=== PATIENT | female | born 1940 | race African-American/Black ===

== ENCOUNTER 2018-03-03 17:07 | Inpatient (IN) | payer MEDICARE, MEDICAID ==
[~2018-03-03] VITALS: Ht 175.3 cm; Wt 105.9 kg
--- NOTE | 2018-03-03 17:46 | Emergency Room Report ---
History of Present Illness General Chief Complaint: General Complaint Source: Patient Present Illness HPI 77-year-old female patient presents ER brought in by ambulance complaining of right lower extremity pain. Patient reports history of pain in both legs secondary to peripheral vascular disease, states pain in right leg worsened in the past few days. reports currently being seen by clinical reimbursement specialist for wound on lower left leg. Reports being seen by vascular doctor for possible stent placement and lower extremities. Denies other acute symptoms, denies fever, chest pain, shortness of breath. Reports pain with ambulation. Reports hx of taking blood thinner medication, patient does not know name of medication at this time. Patient reports she lives alone, not in assisted living facility. Patient is a poor historian. Allergies: Coded Allergies: No Known Allergies (Unverified , 03/03/18) Patient History Past Medical History: see triage record Reviewed Nursing Documentation: PMH: Agreed; PSxH: Agreed Nursing Documentation-PMH Hx Cardiac Problems: Yes - A-fib Hx Hypertension: Yes Review of Systems All Other Systems: negative except mentioned in HPI Physical Exam Vital Signs Date Time Temp Pulse Resp B/P (MAP) Pulse Ox O2 Delivery O2 Flow Rate FiO2 03/03/18 17:06 97.3 102 18 108/64 96 Room Air 97.3 Sp02 EP Interpretation: reviewed, normal General Appearance: well appearing, no apparent distress, alert, GCS 15, non- toxic Head: normocephalic, atraumatic Eyes: bilateral eye normal inspection, bilateral eye PERRL Neck: full range of motion Respiratory: lungs clear, normal breath sounds, no rhonchi, no respiratory distress, no accessory muscle use, no wheezing, speaking full sentences Cardiovascular #1: regular rate, rhythm, edema - bilateral lower extremities Gastrointestinal: non tender, soft, no mass, non-distended, no guarding, no rebound Neurologic: alert, oriented x3, responsive, motor strength/tone normal, sensory intact Psychiatric: mood/affect normal Skin: wd healing/no infection noted - anterior left lower extremity Medical Decision Making PA Attestation Dr. Velasquez is my supervising Physician whom patient management has been discussed with. Diagnostic Impression: Primary Impression: Generalized weakness Additional Impressions: Elevated troponin Atrial fibrillation Leg ulcer, left ER Course Pt. presents to the ED c/o right lower extremity pain Multiple differentials considered Vital signs: are WNL, pt. is afebrile Ordered X-ray, labs, EKG, PT, PTT, duplex ultrasound of bilateral lower extremities and pain medication. ER COURSE Patient complaining of right lower extremity pain, reports hx of leg pain. Patient reports taking Ibuprofen for pain, will provide patient with medication in ER for pain. Consult with Dr. Velasquez, patient seen and evaluated by Dr. Velasquez, patient now complaining of left lower extremity pain. patient has wound care dressing on right leg, Following removal of wound dressing, patient reports pain symptoms in left leg improved. Patient denies right leg pain Duplex ultrasound of bilateral lower extremities negative for DVT. EKG shows atrial fibrillation chest x-ray shows enlarged cardiomediastinal silhouette and mild bilateral nonspecific interstitial prominence CBC unremarkable, no elevation of WBCs. PT, PTT, INR elevated, patient has a history of being on blood thinners, does not know name of medication taking. Troponin elevated. Consult with Dr. Velasquez, agree that patient need to be admitted. Patient will be admitted to telemetry. Patient admitted to covering for Dr. Hoffmann. Patient denies chest pain, SOB, abdominal pain, other acute symptoms at this time. Patient resting comfortably in no acute distress at this time. Labs Test 03/03/18 17:55 White Blood Count 6.6 K/UL (4.8-10.8) Red Blood Count 5.09 M/UL (4.20-5.40) Hemoglobin 12.5 G/DL (12.0-16.0) Hematocrit 39.7 % (37.0-47.0) Mean Corpuscular Volume 78 FL (80-99) Mean Corpuscular Hemoglobin 24.5 PG (27.0-31.0) Mean Corpuscular Hemoglobin Concent 31.4 G/DL (32.0-36.0) Red Cell Distribution Width 14.5 % (11.6-14.8) Platelet Count 187 K/UL (150-450) Mean Platelet Volume 7.7 FL (6.5-10.1) Neutrophils (%) (Auto) 70.6 % (45.0-75.0) Lymphocytes (%) (Auto) 14.5 % (20.0-45.0) Monocytes (%) (Auto) 10.0 % (1.0-10.0) Eosinophils (%) (Auto) 3.2 % (0.0-3.0) Basophils (%) (Auto) 1.7 % (0.0-2.0) Prothrombin Time 25.4 SEC (9.30-11.50) Prothromb Time International Ratio 2.4 (0.9-1.1) Activated Partial Thromboplast Time 59 SEC (23-33) Sodium Level 141 MMOL/L (136-145) Potassium Level 3.8 MMOL/L (3.5-5.1) Chloride Level 101 MMOL/L (98-107) Carbon Dioxide Level 33 MMOL/L (21-32) Anion Gap 7 mmol/L (5-15) Blood Urea Nitrogen 82 mg/dL (7-18) Creatinine 2.7 MG/DL (0.55-1.30) Estimat Glomerular Filtration Rate mL/min (>60) Glucose Level 127 MG/DL (74-106) Calcium Level 9.5 MG/DL (8.5-10.1) Total Bilirubin 0.4 MG/DL (0.2-1.0) Aspartate Amino Transf (AST/SGOT) 18 U/L (15-37) Alanine Aminotransferase (ALT/SGPT) 22 U/L (12-78) Alkaline Phosphatase 94 U/L (46-116) Total Creatine Kinase 106 U/L (26-308) Creatine Kinase MB 1.6 NG/ML (0.0-3.6) Creatine Kinase MB Relative Index 1.5 Troponin I 0.159 ng/mL (0.000-0.056) Total Protein 8.7 G/DL (6.4-8.2) Albumin 3.2 G/DL (3.4-5.0) Globulin 5.5 g/dL Albumin/Globulin Ratio 0.6 (1.0-2.7) EKG Diagnostic Results Rate: normal Rhythm: other Other Impression atrial fibrillation right bundle branch block T-wave abnormality Abnormal EKG ASA given to the pt in ED: No PA Scribe Text Sam Louis PA-C Rhythm Strip Diag. Results EP Interpretation: yes Rate: 103 Rhythm: other PA Scribe Text Sam Louis PA-C Chest X-Ray Diagnostic Results Chest X-Ray Diagnostic Results : Chest X-Ray Ordered: Yes # of Views/Limited/Complete: 1 View Indication: Chest Pain EP Interpretation: Yes PA Xray: Interpretation reviewed Interpretation: no consolidation, no pneumothorax, other - moderately enlarged cardiomediastinal silhouette, mild bilateral nonspecific interstitial prominence may be related to mild interstitial edema or chronic interstitial lung disease Impression: Other PA Scribgiacomo Text Sam Louis PA-C CT/MRI/US Diagnostic Results CT/MRI/US Diagnostic Results : Imaging Test Ordered: Doppler US Impression no DVT in bilateral lower extremities via US central service technician Last Vital Signs Date Time Temp Pulse Resp B/P (MAP) Pulse Ox O2 Delivery O2 Flow Rate FiO2 03/03/18 17:06 97.3 102 18 108/64 96 Room Air 97.3 Disposition: ADMITTED INPATIENT Condition: Serious Richar Louis March 03, 2018 17:46
[2018-03-03 18:11] LABS: BASOPHILS % (AUTO) 1.7 % (0.0-2.0); EOSINOPHILS % (AUTO) 3.2 % (0.0-3.0); HEMATOCRIT 39.7 % (37.0-47.0); HEMOGLOBIN 12.5 G/DL (12.0-16.0); LYMPHOCYTES % (AUTO) 14.5 % (20.0-45.0); MEAN CORPUSCULAR VOLUME 78 FL (80-99); NEUTROPHILS % (AUTO) 70.6 % (45.0-75.0); PLATELET COUNT 187 K/UL (150-450); RED BLOOD COUNT 5.09 M/UL (4.20-5.40); RED CELL DISTRIBUTION WIDTH 14.5 % (11.6-14.8); WHITE BLOOD COUNT 6.6 K/UL (4.8-10.8)
[2018-03-03 18:15] LABS: ANION GAP 7 mmol/L (5-15); BLOOD UREA NITROGEN 82 mg/dL (7-18); CALCIUM 9.5 MG/DL (8.5-10.1); CARBON DIOXIDE 33 MMOL/L (21-32); CHLORIDE 101 MMOL/L (98-107); CREATININE 2.7 MG/DL (0.55-1.30); POTASSIUM 3.8 MMOL/L (3.5-5.1); SODIUM 141 MMOL/L (136-145)
[2018-03-03 18:18] LABS: INR 2.4 (0.9-1.1)
[2018-03-03 18:30] LABS: ALANINE AMINOTRANSFERASE 22 U/L (12-78); ALBUMIN 3.2 G/DL (3.4-5.0); ALBUMIN/GLOBULIN RATIO 0.6 (1.0-2.7); ALKALINE PHOSPHATASE 94 U/L (46-116); ASPARTATE AMINO TRANSFERASE 18 U/L (15-37); BILIRUBIN,TOTAL 0.4 MG/DL (0.2-1.0); CKMB 1.6 NG/ML (0.0-3.6); CREATINE KINASE 106 U/L (26-308)
[2018-03-03] MEDS ORDERED: UNOBMED (18:47)
[2018-03-03 19:30] VITALS: BP 118/66
--- NOTE | 2018-03-03 19:42 | Diagnostic Imaging Report ---
EXAM: XR Chest, 1 View CLINICAL HISTORY: PAIN TECHNIQUE: Frontal view of the chest. COMPARISON: No relevant prior studies available. FINDINGS: Lungs: Mild bilateral nonspecific interstitial prominence may be related to mild interstitial edema or chronic interstitial lung disease. No focal consolidation. Pleural space: Unremarkable. No pneumothorax. Heart: Moderately enlarged cardiomediastinal silhouette. Mediastinum: See above. Bones/joints: No acute osseous abnormality. IMPRESSION: 1. Moderately enlarged cardiomediastinal silhouette. 2. Mild bilateral nonspecific interstitial prominence may be related to mild interstitial edema or chronic interstitial lung disease.
[2018-03-03 20:30] VITALS: BP 115/62
[2018-03-04] MEDS ORDERED: TRUSOPT10 ML BOTH EYES (02:43)
[2018-03-04] MEDS ORDERED: XALATAN2.5 ML BOTH EYES (02:43)
[2018-03-04] MEDS ORDERED: BRIMONIDINE TART5 ML BOTH EYES (02:43)
[2018-03-04] MEDS ORDERED: LIORESAL20 MG ORAL (02:43)
[2018-03-04 04:00] VITALS: BP 119/79
[2018-03-04 08:00] VITALS: BP 113/69
[2018-03-04] MEDS ORDERED: Dabigatran 150mg cap ORAL SCH (09:00)
[2018-03-04] MEDS: Carvedilol 12.5mg tab ORAL SCH ×2 (09:03→22:06)
[2018-03-04] MEDS: Furosemide 80mg tab ORAL SCH ×2 (09:03→22:06)
[2018-03-04 12:00] VITALS: BP 106/64
[2018-03-04] MEDS: Brimonidine 0.2% Opth Sol BOTH EYES SCH ×2 (13:10→22:08)
--- NOTE | 2018-03-04 13:25 | History and Physical ---
History of Present Illness General Date patient seen: March 04, 2018 Reason for Hospitalization: generalized weakness Present Illness HPI 77-year-old female patient presents ER brought in by ambulance complaining of right lower extremity pain. Patient reports history of pain in both legs secondary to peripheral vascular disease, states pain in right leg worsened in the past few days. reports currently being seen by antenna specialist for wound on lower left leg. Reports being seen by vascular doctor for possible stent placement and lower extremities. Denies other acute symptoms, denies fever, chest pain, shortness of breath. Reports pain with ambulation. patient lives alone and states that it has been harder to taker care of herslef recently. Allergies: Allergies: Coded Allergies: No Known Allergies (Unverified , 03/03/18) Medication History Scheduled Baclofen (Baclofen), 20 MG ORAL THREE TIMES A DAY, (Reported) Brimonidine Tartrate* (Alphagan*), 1 DROP BOTH EYES TID, (Reported) Dorzolamide Hcl* (Trusopt*), 1 DROP BOTH EYES BID, (Reported) Latanoprost* (Xalatan*), 1 DROP BOTH EYES BEDTIME, (Reported) Miscellaneous Medications Unable to Obtain Medications (Unable To Obtain Meds), (Reported) Patient History Healthcare decision maker Resuscitation status Full Code Advanced Directive on File Review of Systems Constitutional: Reports: chills; Denies: no symptoms, see HPI, sweats, fever, malaise, weakness, other Eye: Denies: no symptoms, see HPI, eye pain, blurred vision, tearing, double vision, nose pain, nose congestion, acuity changes, discharge, other ENT: Denies: no symptoms, see HPI, ear pain, ear discharge, nose pain, nose congestion, throat pain, throat swelling, mouth pain, hearing loss, nasal discharge, other Respiratory: Denies: no symptoms, see HPI, cough, orthopnea, shortness of breath, stridor, wheezing, CHICAS, sputum, other Cardiovascular: Denies: no symptoms, see HPI, chest pain, edema, palpitations, syncope, PND, other Skin: Denies: no symptoms, see HPI, rash, change in color, change in hair/nails , dryness, lesions, other Psychiatric: Denies: no symptoms, see HPI, prior hx, anxiety, depressed feelings, emotional problems, SI, HI, hallucinations, other Endocrine: Denies: no symptoms, see HPI, excessive sweating, flushing, intolerance to temperature, increased thirst, increased urine, unexplained weight loss, other Hematologic/Lymphatic: Denies: no symptoms, see HPI, anemia, blood clots, easy bleeding, easy bruising, swollen glands, diathesis, other Physical Exam General Appearance: WD/WN, alert HEENT: normocephalic Neck: non-tender Respiratory/Chest: chest wall non-tender, lungs clear Cardiovascular/Chest: normal rate, regular rhythm, regularly irregular, no gallop/murmur Abdomen: non tender, soft, no mass Extremities: normal inspection, no edema, no cyanosis Last 24 Hour Vital Signs Date Time Temp Pulse Resp B/P (MAP) Pulse Ox O2 Delivery O2 Flow Rate FiO2 03/04/18 12:00 98.2 67 19 106/64 96 Room Air 98.2 03/04/18 12:00 92 03/04/18 09:03 100 113/69 03/04/18 08:00 96 03/04/18 08:00 98.0 100 20 113/69 99 Room Air 98.0 03/04/18 04:00 98.6 99 20 119/79 95 Room Air 98.6 03/04/18 04:00 93 03/03/18 20:45 97.9 92 16 115/62 97 Room Air 97.9 03/03/18 20:30 97.9 92 16 115/62 97 Room Air 97.9 03/03/18 19:30 98.0 98 16 118/66 98 Room Air 98.0 03/03/18 19:30 97.3 03/03/18 17:06 97.3 102 18 108/64 96 Room Air 97.3 Intake and Output 03/03/18 03/04/18 19:00 07:00 Intake Total 0 ml 300 ml Balance 0 ml 300 ml Intake Oral 0 ml 300 ml # Bowel Movements 1 Laboratory Tests Test 03/03/18 17:55 03/04/18 09:20 03/04/18 11:05 White Blood Count 6.6 K/UL (4.8-10.8) Red Blood Count 5.09 M/UL (4.20-5.40) Hemoglobin 12.5 G/DL (12.0-16.0) Hematocrit 39.7 % (37.0-47.0) Mean Corpuscular Volume 78 FL (80-99) L Mean Corpuscular Hemoglobin 24.5 PG (27.0-31.0) L Mean Corpuscular Hemoglobin Concent 31.4 G/DL (32.0-36.0) L Red Cell Distribution Width 14.5 % (11.6-14.8) Platelet Count 187 K/UL (150-450) Mean Platelet Volume 7.7 FL (6.5-10.1) Neutrophils (%) (Auto) 70.6 % (45.0-75.0) Lymphocytes (%) (Auto) 14.5 % (20.0-45.0) L Monocytes (%) (Auto) 10.0 % (1.0-10.0) Eosinophils (%) (Auto) 3.2 % (0.0-3.0) H Basophils (%) (Auto) 1.7 % (0.0-2.0) Prothrombin Time 25.4 SEC (9.30-11.50) H Prothromb Time International Ratio 2.4 (0.9-1.1) H Activated Partial Thromboplast Time 59 SEC (23-33) H Sodium Level 141 MMOL/L (136-145) Potassium Level 3.8 MMOL/L (3.5-5.1) Chloride Level 101 MMOL/L (98-107) Carbon Dioxide Level 33 MMOL/L (21-32) H Anion Gap 7 mmol/L (5-15) Blood Urea Nitrogen 82 mg/dL (7-18) H Creatinine 2.7 MG/DL (0.55-1.30) H Estimat Glomerular Filtration Rate mL/min (>60) Glucose Level 127 MG/DL (74-106) H Calcium Level 9.5 MG/DL (8.5-10.1) Total Bilirubin 0.4 MG/DL (0.2-1.0) Aspartate Amino Transf (AST/SGOT) 18 U/L (15-37) Alanine Aminotransferase (ALT/SGPT) 22 U/L (12-78) Alkaline Phosphatase 94 U/L (46-116) Total Creatine Kinase 106 U/L (26-308) Creatine Kinase MB 1.6 NG/ML (0.0-3.6) Creatine Kinase MB Relative Index 1.5 Troponin I 0.159 ng/mL (0.000-0.056) 0.207 ng/mL (0.000-0.056) 0.212 ng/mL (0.000-0.056) Total Protein 8.7 G/DL (6.4-8.2) H Albumin 3.2 G/DL (3.4-5.0) L Globulin 5.5 g/dL Albumin/Globulin Ratio 0.6 (1.0-2.7) L Magnesium Level 2.4 MG/DL (1.8-2.4) Height (Feet): 5 Height (Inches): 9.00 Weight (Pounds): 250 Medications Current Medications Medications (Trade) Dose Ordered Sig/Karoline Route PRN Reason Start Time Stop Time Status Last Admin Dose Admin Acetaminophen (Tylenol) 650 mg Q4H PRN ORAL Mild Pain/Temp > 100.5 03/04/18 00:00 04/03/18 00:00 Brimonidine Tartrate (Alphagan) 1 drop Q8HR BOTH EYES 03/04/18 14:00 04/03/18 13:59 03/04/18 13:10 Carvedilol (Coreg) 12.5 mg EVERY 12 HOURS ORAL 03/04/18 09:00 04/03/18 08:59 03/04/18 09:03 Dabigatran (Pradaxa) 150 mg EVERY 12 HOURS ORAL 03/04/18 09:00 04/03/18 08:59 03/04/18 09:03 Dorzolamide HCl (Trusopt) 1 drop TWICE A DAY BOTH EYES 03/04/18 18:00 04/03/18 17:59 Furosemide (Lasix) 80 mg EVERY 12 HOURS ORAL 03/04/18 09:00 04/03/18 08:59 03/04/18 09:03 Latanoprost (Xalatan) 1 drop BEDTIME BOTH EYES 03/04/18 21:00 04/03/18 20:59 Metolazone (Zaroxolyn) 5 mg DAILY ORAL 03/04/18 09:00 04/03/18 08:59 03/04/18 09:03 Assessment/Plan Assessment/Plan #elevated troponin- no report of angina #generalized weakness #leg pain #history of PAD #LEON on CKD - admit inpatient - serial trop - 2d echo - aspirin 81mg daily - cardiology consult - nephrology consult - lower extremity vascular arterial and venous doppler - pain control - DVT ppx Jarvis Brumfield M.D. March 04, 2018 13:25
--- NOTE | 2018-03-04 14:13 | Consultation ---
Consult Note Assessment/Plan Cardiology for Dr. Burton Full note dictated [id number] Mayela Cedeno MD March 04, 2018 14:13
--- NOTE | 2018-03-04 15:04 | Consultation ---
Consult Note Assessment/Plan Renal consult dictated # [id number] Wilian Montesinos MD March 04, 2018 15:04
[2018-03-04 15:56] LABS: APPEARANCE,URINE SLIGHTLY CLOUDY; BILIRUBIN, URINE NEGATIVE (NEGATIVE); COLOR,URINE PALE YELLOW; GLUCOSE, URINE (UA) NEGATIVE (NEGATIVE); KETONES,URINE NEGATIVE (NEGATIVE); LEUKOCYTE ESTERASE ,URINE 1+ (NEGATIVE); NITRITE,URINE NEGATIVE (NEGATIVE); PH,URINE 6.5 (4.5-8.0); PROTEIN,URINE NEGATIVE (NEGATIVE); UROBILINOGEN,URINE NORMAL MG/DL (0.0-1.0)
[2018-03-04 16:00] VITALS: BP 114/66
--- NOTE | 2018-03-04 17:15 | Consultation ---
DATE OF CONSULTATION: 03/04/2018 CARDIOLOGY CONSULTATION CONSULTING PHYSICIAN: Mayela Barrera M.D. REFERRING PHYSICIAN: Dr. Bridget Hoffmann. This is being done as coverage for Dr. Burton. REASON FOR CONSULTATION: Atrial fibrillation and elevated troponin. HISTORY OF PRESENT ILLNESS: The patient is a 77-year-old woman with history of hypertension, peripheral vascular disease, and atrial fibrillation, who presents with complaints of bilateral leg pain over several days prior to admission. Symptoms worsened over the past day. She states she could not move her legs without pain and presented to the emergency room. She is being treated for a wound of her left leg. In the emergency room, pulse was 102, irregular, blood pressure 108/64. Her initial troponin was elevated at 0.159 and Cardiology evaluation was requested. She was also noted to be in atrial fibrillation with rapid ventricular rate. She denies any chest pain, dyspnea, or palpitations currently. She denies any previous history of coronary artery disease, angina, or myocardial infarction. MEDICATIONS: Pradaxa 75 mg twice daily, Xalatan eyedrops 1 drop to both eyes daily, Trusopt eyedrops 1 drop to both eyes twice daily, Alphagan eyedrops 1 drop to both eyes every 8 hours, Lasix 80 mg every 12 hours, Coreg 12.5 mg every 12 hours, Zaroxolyn 5 mg daily, Tylenol p.r.n. ALLERGIES: No known drug allergies. PAST MEDICAL HISTORY: As noted above. History of atrial fibrillation, hypertension, peripheral vascular disease. SOCIAL HISTORY: The patient lives alone. She has remote history of tobacco use, but has not smoked in over 20 years. No history of alcohol or drug use. REVIEW OF SYSTEMS: Negative except as per HPI. PHYSICAL EXAMINATION: VITAL SIGNS: Blood pressure is 106/64, pulse 92, irregularly irregular, respirations 20, afebrile. GENERAL: Alert, well-developed woman in mild distress due to leg pain. HEENT: Normocephalic and atraumatic. Pupils are equal, round, and reactive to light. Extraocular movements intact. Sclerae anicteric. Oral mucosa are moist. NECK: Supple. There is no thyromegaly, adenopathy, or jugular venous distention. Carotid pulses are 2+ bilaterally without bruits. LUNGS: There are bilateral scattered rhonchi and transmitted upper airway sounds. HEART: Irregularly irregular, S1 and S2 with no murmur or S3. ABDOMEN: Soft, nontender. No palpable mass. EXTREMITIES: There is 2+ pitting edema of both legs, feet to calf and dry dressing over the left calf. Distal lower extremity pulses are not palpable, but extremities warm and perfused. NEUROLOGIC: No focal motor deficits. LABORATORY AND DIAGNOSTIC DATA: Hemoglobin 12.5, hematocrit 39, white blood count 6600, platelets 187,000. Troponin was 0.159 on admission and repeat 0.207 and 0.212. Potassium 3.8, BUN 82, creatinine 2.7, glucose 137. IMAGING STUDIES: Chest x-ray shows mildly increased interstitial markings, cardiomegaly, no effusions. EKG shows atrial fibrillation with ventricular rate of 103 beats per minute, right bundle-branch block, nonspecific T-wave changes, occasional premature ventricular complex or aberrantly conducted complex, no ST-segment changes. ASSESSMENT AND RECOMMENDATIONS: The patient is a 77-year-old woman with hypertension, atrial fibrillation possibly permanent, and peripheral vascular disease, who presents with leg pain likely due to ischemia. She is being treated for a nonhealing ulcer on the left leg. She has undergone venous duplex showing no evidence for DVT. She will be evaluated by Vascular Surgery for further treatment. With regard to her atrial fibrillation, this may be chronic. I will review records from her previous hospitalization at [facility] to determine any previous evaluation she has undergone. For now, we will continue Pradaxa for stroke prevention given her elevated CHADS-VASc score and carvedilol for ventricular rate control. Serial troponin levels will be obtained. Her EKG and clinical history did not suggest an acute coronary syndrome, however. An echo will be obtained to evaluate left ventricular function and valves. Further recommendations will be made based on her clinical course and results of the above testing. We will start aspirin and statin for possible coronary artery disease. Mayela Cedeno M.D. DR: Giovanni JOB#: [id number] CC:
[2018-03-04] MEDS: Dorzolamide 2% 10ml Btl BOTH EYES SCH (17:59)
--- NOTE | 2018-03-04 18:30 | Consultation ---
DATE OF CONSULTATION: 03/04/2018 NEPHROLOGY CONSULTATION CONSULTING PHYSICIAN: Wilian Montesinos M.D. REFERRING PHYSICIAN: Jarvis Brumfield M.D. REASON FOR CONSULTATION: Renal failure. HISTORY OF PRESENT ILLNESS: This is a 77-year-old, female, who was brought in by ambulance for right lower extremity pain. The patient has a history of peripheral vascular disease. I was asked to see her because of elevation in BUN and creatinine to 82 and 2.7 as of today. According to the patient, she was told about 3 or 4 months ago that she has kidney problems. She does not know her baseline. She has had long history of hypertension and she said it was mostly not controlled. PAST MEDICAL HISTORY: History of CKD and hypertension as mentioned. No history of diabetes. History of peripheral vascular disease. MEDICATIONS: Reviewed in the EMR. ALLERGIES: No known drug allergies. SOCIAL HISTORY: No history of smoking or alcohol abuse. The patient lives at home with a caregiver. REVIEW OF SYSTEMS: As above. PHYSICAL EXAMINATION: GENERAL: The patient is an elderly female, in no acute distress. VITAL SIGNS: Blood pressure 106/64, pulse is 92, temperature 98.2 degrees, and respiratory rate is 19. HEENT: [place]han conjunctivae. Anicteric sclerae. NECK: Supple. LUNGS: Clear to auscultation. HEART: S1 and S2 without murmurs or rubs. ABDOMEN: Soft and nontender. EXTREMITIES: Bilateral pedal edema. LABORATORY FINDINGS: The chemistry panel shows serum sodium 141, potassium 3.8, chloride 101, CO2 33, BUN is 82, creatinine 2.7, blood sugar is 127, and calcium is 9.5. CBC shows WBC of 6.6, hematocrit 39.5, hemoglobin is 12.5, and platelets 187,000. Calcium is 9.5. ASSESSMENT: This is a 77-year-old, female with history of peripheral vascular disease, who was admitted with right lower extremity pain. She has renal failure with unknown baseline. She likely has some chronic kidney disease from hypertensive nephropathy, but she could have also acute renal failure for other reasons such as prerenal azotemia or obstruction. PLAN: Urine studies will be done. I will get a renal ultrasound to look at the echogenicity of the kidneys, also to make sure the patient does not have any obstruction. A serum PTH level will be done to make sure the patient does not have secondary hyperparathyroidism. Case was discussed with Dr. Conley. Thank you very much for this consultation. Wilian Montesinos M.D. DR: SEBASTIAN JOB#: [id number] CC:
[2018-03-04 20:00] VITALS: BP 117/50
[2018-03-04] MEDS: Latanoprost 0.005% Opth 2.5ml Soln BOTH EYES SCH (22:07)
[2018-03-05] VITALS: BP 92/59
[2018-03-05 04:00] VITALS: BP 105/62
[2018-03-05] MEDS: Brimonidine 0.2% Opth Sol BOTH EYES SCH ×3 (06:15→21:27)
[2018-03-05 08:00] VITALS: BP 119/59
[2018-03-05 08:10] LABS: HEMATOCRIT 36.9 % (37.0-47.0); HEMOGLOBIN 11.5 G/DL (12.0-16.0); MEAN CORPUSCULAR VOLUME 78 FL (80-99); PLATELET COUNT 191 K/UL (150-450); RED BLOOD COUNT 4.73 M/UL (4.20-5.40); RED CELL DISTRIBUTION WIDTH 14.8 % (11.6-14.8); WHITE BLOOD COUNT 10.7 K/UL (4.8-10.8)
[2018-03-05] MEDS: Aspirin EC 81mg tab ORAL SCH (08:22)
[2018-03-05] MEDS: Carvedilol 12.5mg tab ORAL SCH ×3 (08:23→21:00)
[2018-03-05] MEDS: Furosemide 80mg tab ORAL SCH ×2 (08:23→20:58)
[2018-03-05] MEDS: Dorzolamide 2% 10ml Btl BOTH EYES SCH ×2 (08:23→17:12)
[2018-03-05 08:40] LABS: ANION GAP 9 mmol/L (5-15); BLOOD UREA NITROGEN 74 mg/dL (7-18); CALCIUM 9.9 MG/DL (8.5-10.1); CARBON DIOXIDE 31 MMOL/L (21-32); CHLORIDE 103 MMOL/L (98-107); CHOLESTEROL 142 MG/DL (< 200); CREATININE 2.5 MG/DL (0.55-1.30); HDL CHOLESTEROL 73 MG/DL (40-60); POTASSIUM 3.4 MMOL/L (3.5-5.1); SODIUM 143 MMOL/L (136-145); TRIGLYCERIDES 49 MG/DL (30-150)
[2018-03-05 11:43] VITALS: BP 116/65
--- NOTE | 2018-03-05 13:52 | Cardiology Progress Note ---
Assessment/Plan Problem List: (1) CKD (chronic kidney disease) (2) Peripheral vascular disease (3) Atrial fibrillation (4) Elevated troponin (5) Leg ulcer, left Status: stable, unchanged Status Narrative Mrs. Vargas is stable from a cardiac standpoint. ECHO shows no wall motion abnl and preserved LV systolic function. However, there is severe pulm hypertension. She has mild troponin elevation, without significant ekg changes ( SR, RBBB and nonspecific T changes) I suspect AF is permanent. Ventricular rates are controlled She has PVD, w/ nonhealing L LE ulcer. She has CKD, which may be due to to previous uncontrolled hypertension Assessment/Plan Will order stress nuclear study for tues, in view of troponin elevation and pt' s cardiac risk factors ( htn, previous tobacco use). Continue asa , b anthony, statin continue pradaxa for CVA prevention in AF Evaluation of LE wound and PVD per primary team Subjective ROS Limited/Unobtainable: No Subjective Cardiology for Dr. Burton Pt c/o L leg pain. No chest pain or dyspnea Objective Last 24 Hour Vital Signs Date Time Temp Pulse Resp B/P (MAP) Pulse Ox O2 Delivery O2 Flow Rate FiO2 03/05/18 11:43 98.4 100 21 116/65 96 Room Air 98.4 03/05/18 08:23 100 119/59 03/05/18 08:00 97.7 100 19 119/59 94 Room Air 97.7 03/05/18 08:00 97 03/05/18 05:55 99.2 03/05/18 04:41 102.0 03/05/18 04:00 98 03/05/18 04:00 102.0 103 22 105/62 96 Room Air 102.0 03/05/18 00:00 101.0 107 20 92/59 94 Room Air 101.0 03/05/18 00:00 103 03/04/18 22:06 111 117/50 03/04/18 20:00 97.9 111 18 117/50 95 97.9 03/04/18 20:00 96 03/04/18 16:00 101 03/04/18 16:00 97.9 100 20 114/66 95 Room Air 97.9 General Appearance: WD/WN, no apparent distress EENT: PERRL/EOMI Neck: supple, no JVD Rhythm: Afib Cardiovascular: normal rate, no gallop/murmur, irregularly irregular Respiratory/Chest: lungs clear Extremities: other - 2+ pitting edema distal LEs bilat. L LE dressing Pulses: normal: DP (R); decreased: DP (L) Intake and Output 03/04/18 03/05/18 19:00 07:00 Intake Total 570 ml 360 ml Output Total 1001 ml 2700 ml Balance -431 ml -2340 ml Intake Oral 450 ml 360 ml Other 120 ml Output Urine Total 1000 ml 2700 ml Stool Total 1 ml Laboratory Tests Test 03/04/18 15:30 03/05/18 06:50 Urine Color Pale yellow Urine Appearance Slightly cloudy Urine pH 6.5 (4.5-8.0) Urine Specific [place] 1.005 (1.005-1.035) Urine Protein Negative (NEGATIVE) Urine Glucose (UA) Negative (NEGATIVE) Urine Ketones Negative (NEGATIVE) Urine Occult Blood Negative (NEGATIVE) Urine Nitrite Negative (NEGATIVE) Urine Bilirubin Negative (NEGATIVE) Urine Urobilinogen Normal MG/DL (0.0-1.0) Urine Leukocyte Esterase 1+ (NEGATIVE) H Urine RBC 0-2 /HPF (0 - 2) Urine WBC 5-10 /HPF (0 - 2) H Urine Squamous Epithelial Cells Moderate /LPF (NONE/OCC) H Urine Bacteria Few /HPF (NONE) Urine Mucus Few /LPF (NONE/OCC) H Urine Eosinophils None seen Urine Random Sodium 98 mmol/L (20-110) 17-Hydroxycorticosteroids Pending White Blood Count 10.7 K/UL (4.8-10.8) Red Blood Count 4.73 M/UL (4.20-5.40) Hemoglobin 11.5 G/DL (12.0-16.0) L Hematocrit 36.9 % (37.0-47.0) L Mean Corpuscular Volume 78 FL (80-99) L Mean Corpuscular Hemoglobin 24.3 PG (27.0-31.0) L Mean Corpuscular Hemoglobin Concent 31.2 G/DL (32.0-36.0) L Red Cell Distribution Width 14.8 % (11.6-14.8) Platelet Count 191 K/UL (150-450) Mean Platelet Volume 7.6 FL (6.5-10.1) Neutrophils (%) (Auto) % (45.0-75.0) Lymphocytes (%) (Auto) % (20.0-45.0) Monocytes (%) (Auto) % (1.0-10.0) Eosinophils (%) (Auto) % (0.0-3.0) Basophils (%) (Auto) % (0.0-2.0) Differential Total Cells Counted 100 Neutrophils % (Manual) 90 % (45-75) H Lymphocytes % (Manual) 4 % (20-45) L Monocytes % (Manual) 6 % (1-10) Eosinophils % (Manual) 0 % (0-3) Basophils % (Manual) 0 % (0-2) Band Neutrophils 0 % (0-8) Platelet Estimate Adequate Platelet Morphology Normal Hypochromasia 1+ Anisocytosis 1+ Sodium Level 143 MMOL/L (136-145) Potassium Level 3.4 MMOL/L (3.5-5.1) L Chloride Level 103 MMOL/L (98-107) Carbon Dioxide Level 31 MMOL/L (21-32) Anion Gap 9 mmol/L (5-15) Blood Urea Nitrogen 74 mg/dL (7-18) H Creatinine 2.5 MG/DL (0.55-1.30) H Estimat Glomerular Filtration Rate mL/min (>60) Glucose Level 105 MG/DL (74-106) Hemoglobin A1c 7.2 % (4.3-6.0) H Calcium Level 9.9 MG/DL (8.5-10.1) Phosphorus Level 4.0 MG/DL (2.5-4.9) Triglycerides Level 49 MG/DL (30-150) Cholesterol Level 142 MG/DL (< 200) LDL Cholesterol 68 mg/dL (<100) HDL Cholesterol 73 MG/DL (40-60) H Cholesterol/HDL Ratio 1.9 (3.3-4.4) L Microbiology Date/Time Source Procedure Growth Status 03/04/18 06:00 Wound Gram Stain - Final Resulted 03/04/18 06:00 Wound Culture - Preliminary Strep Species, Beta Hemolytic Gram Negative Alex Resulted Mayela Cedeno MD March 05, 2018 13:52
--- NOTE | 2018-03-05 14:30 | Nephrology Progress Note ---
Assessment/Plan Problem List: (1) CKD (chronic kidney disease) Assessment: likely with some ARF, slighltly better (2) Peripheral vascular disease (3) Leg ulcer, left (4) Atrial fibrillation Plan continue with diuretics replete K follow BMP await PTH await renal US Subjective Subjective feels ok Objective Objective Last 24 Hour Vital Signs Date Time Temp Pulse Resp B/P (MAP) Pulse Ox O2 Delivery O2 Flow Rate FiO2 03/05/18 12:00 102 03/05/18 11:43 98.4 100 21 116/65 96 Room Air 98.4 03/05/18 08:23 100 119/59 03/05/18 08:00 97.7 100 19 119/59 94 Room Air 97.7 03/05/18 08:00 97 03/05/18 05:55 99.2 03/05/18 04:41 102.0 03/05/18 04:00 98 03/05/18 04:00 102.0 103 22 105/62 96 Room Air 102.0 03/05/18 00:00 101.0 107 20 92/59 94 Room Air 101.0 03/05/18 00:00 103 03/04/18 22:06 111 117/50 03/04/18 20:00 97.9 111 18 117/50 95 97.9 03/04/18 20:00 96 03/04/18 16:00 101 03/04/18 16:00 97.9 100 20 114/66 95 Room Air 97.9 Intake and Output 03/04/18 03/05/18 19:00 07:00 Intake Total 570 ml 360 ml Output Total 1001 ml 2700 ml Balance -431 ml -2340 ml Intake Oral 450 ml 360 ml Other 120 ml Output Urine Total 1000 ml 2700 ml Stool Total 1 ml Laboratory Tests 03/04/18 15:30: Urine Color Pale yellow, Urine Appearance Slightly cloudy, Urine pH 6.5, Urine Specific [place] 1.005, Urine Protein Negative, Urine Glucose (UA) Negative, Urine Ketones Negative, Urine Occult Blood Negative, Urine Nitrite Negative, Urine Bilirubin Negative, Urine Urobilinogen Normal, Urine Leukocyte Esterase 1+ H, Urine RBC 0-2, Urine WBC 5-10H, Urine Squamous Epithelial Cells ModerateH, Urine Bacteria Few, Urine Mucus FewH, Urine Eosinophils None seen, Urine Random Sodium 98, 17-Hydroxycorticosteroids [Pending] 03/05/18 06:50: White Blood Count 10.7, Red Blood Count 4.73, Hemoglobin 11.5L, Hematocrit 36.9L , Mean Corpuscular Volume 78L, Mean Corpuscular Hemoglobin 24.3L, Mean Corpuscular Hemoglobin Concent 31.2L, Red Cell Distribution Width 14.8, Platelet Count 191, Mean Platelet Volume 7.6, Neutrophils (%) (Auto) , Lymphocytes (%) (Auto) , Monocytes (%) (Auto) , Eosinophils (%) (Auto) , Basophils (%) (Auto) , Differential Total Cells Counted 100, Neutrophils % ( Manual) 90H, Lymphocytes % (Manual) 4L, Monocytes % (Manual) 6, Eosinophils % ( Manual) 0, Basophils % (Manual) 0, Band Neutrophils 0, Platelet Estimate Adequate, Platelet Morphology Normal, Hypochromasia 1+, Anisocytosis 1+, Sodium Level 143, Potassium Level 3.4L, Chloride Level 103, Carbon Dioxide Level 31, Anion Gap 9, Blood Urea Nitrogen 74H, Creatinine 2.5H, Estimat Glomerular Filtration Rate , Glucose Level 105, Hemoglobin A1c 7.2H, Calcium Level 9.9, Phosphorus Level 4.0, Triglycerides Level 49, Cholesterol Level 142, LDL Cholesterol 68, HDL Cholesterol 73H, Cholesterol/HDL Ratio 1.9L Height (Feet): 5 Height (Inches): 9.00 Weight (Pounds): 250 Cardiovascular: normal rate Respiratory/Chest: lungs clear Extremities: moderate edema Wilian Montesinos MD March 05, 2018 14:30
--- NOTE | 2018-03-05 15:17 | Diagnostic Imaging Report ---
EXAM: US Retroperitoneal Limited, Renal CLINICAL HISTORY: Increased renal function tests TECHNIQUE: Real-time ultrasound of the retroperitoneum (limited) with image documentation. COMPARISON: No relevant prior studies available. FINDINGS: Right kidney: Right kidney measures 10.0 x 6.7 x 4.4 cm. No stones. No hydronephrosis. Normal parenchymal echogenicity. Left kidney: 5.6 cm simple-appearing partially exophytic cyst in the mid left kidney. Left kidney measures 11.3 x 7.8 x 6.5 cm. No stones. No hydronephrosis. Normal parenchymal echogenicity. Bladder: Prevoid urinary bladder volume of 78.8 cc. IMPRESSION: 1. No acute findings. 2. A 5.6 cm simple-appearing partially exophytic cyst in the mid left kidney.
[2018-03-05 16:00] VITALS: BP 118/71
--- NOTE | 2018-03-05 17:10 | Internal Med Progress Note ---
Subjective Date of Service: March 05, 2018 Physician Name Jarvis Brumfield Attending Physician Bridget Hofmfann MD Current Medications Medications (Trade) Dose Ordered Sig/Karoline Route PRN Reason Start Time Stop Time Status Last Admin Dose Admin Acetaminophen (Tylenol) 650 mg Q4H PRN ORAL Mild Pain/Temp > 100.5 03/04/18 00:00 04/03/18 00:00 03/05/18 04:41 Aspirin (Ecotrin) 81 mg DAILY ORAL 03/05/18 09:00 04/04/18 08:59 03/05/18 08:22 Atorvastatin Calcium (Lipitor) 10 mg BEDTIME ORAL 03/05/18 21:00 04/04/18 20:59 Brimonidine Tartrate (Alphagan) 1 drop Q8HR BOTH EYES 03/04/18 14:00 04/03/18 13:59 03/05/18 13:18 Carvedilol (Coreg) 12.5 mg EVERY 12 HOURS ORAL 03/04/18 09:00 04/03/18 08:59 03/05/18 08:23 Dabigatran (Pradaxa) 75 mg EVERY 12 HOURS ORAL 03/05/18 09:00 04/04/18 08:59 03/05/18 08:22 Dorzolamide HCl (Trusopt) 1 drop TWICE A DAY BOTH EYES 03/04/18 18:00 04/03/18 17:59 03/05/18 08:23 Furosemide (Lasix) 80 mg EVERY 12 HOURS ORAL 03/04/18 09:00 04/03/18 08:59 03/05/18 08:23 Latanoprost (Xalatan) 1 drop BEDTIME BOTH EYES 03/04/18 21:00 04/03/18 20:59 03/04/18 22:07 Metolazone (Zaroxolyn) 5 mg DAILY ORAL 03/04/18 09:00 04/03/18 08:59 03/05/18 08:23 Regadenoson (Lexiscan) 0.4 mg ONCE PRN IV stress test 03/06/18 09:00 03/07/18 23:59 Allergies: Coded Allergies: No Known Allergies (Unverified , 03/03/18) All Systems: reviewed and negative except above Subjective no acute events overnight no chest pain or shortness of breath evaluated by cardiology and renal Objective Last Vital Signs Date Time Temp Pulse Resp B/P (MAP) Pulse Ox O2 Delivery O2 Flow Rate FiO2 03/05/18 16:00 97.6 92 20 118/71 97 Room Air 97.6 General Appearance: WD/WN, no apparent distress, alert EENT: PERRL/EOMI Neck: non-tender Cardiovascular: normal peripheral pulses Respiratory/Chest: chest wall non-tender, lungs clear Abdomen: normal bowel sounds, non tender, soft Extremities: normal range of motion Edema: trace edema Neurologic: alert, oriented x 3, responsive Laboratory Tests Test 03/05/18 06:50 White Blood Count 10.7 K/UL (4.8-10.8) Red Blood Count 4.73 M/UL (4.20-5.40) Hemoglobin 11.5 G/DL (12.0-16.0) L Hematocrit 36.9 % (37.0-47.0) L Mean Corpuscular Volume 78 FL (80-99) L Mean Corpuscular Hemoglobin 24.3 PG (27.0-31.0) L Mean Corpuscular Hemoglobin Concent 31.2 G/DL (32.0-36.0) L Red Cell Distribution Width 14.8 % (11.6-14.8) Platelet Count 191 K/UL (150-450) Mean Platelet Volume 7.6 FL (6.5-10.1) Neutrophils (%) (Auto) % (45.0-75.0) Lymphocytes (%) (Auto) % (20.0-45.0) Monocytes (%) (Auto) % (1.0-10.0) Eosinophils (%) (Auto) % (0.0-3.0) Basophils (%) (Auto) % (0.0-2.0) Differential Total Cells Counted 100 Neutrophils % (Manual) 90 % (45-75) H Lymphocytes % (Manual) 4 % (20-45) L Monocytes % (Manual) 6 % (1-10) Eosinophils % (Manual) 0 % (0-3) Basophils % (Manual) 0 % (0-2) Band Neutrophils 0 % (0-8) Platelet Estimate Adequate Platelet Morphology Normal Hypochromasia 1+ Anisocytosis 1+ Sodium Level 143 MMOL/L (136-145) Potassium Level 3.4 MMOL/L (3.5-5.1) L Chloride Level 103 MMOL/L (98-107) Carbon Dioxide Level 31 MMOL/L (21-32) Anion Gap 9 mmol/L (5-15) Blood Urea Nitrogen 74 mg/dL (7-18) H Creatinine 2.5 MG/DL (0.55-1.30) H Estimat Glomerular Filtration Rate mL/min (>60) Glucose Level 105 MG/DL (74-106) Hemoglobin A1c 7.2 % (4.3-6.0) H Calcium Level 9.9 MG/DL (8.5-10.1) Phosphorus Level 4.0 MG/DL (2.5-4.9) Triglycerides Level 49 MG/DL (30-150) Cholesterol Level 142 MG/DL (< 200) LDL Cholesterol 68 mg/dL (<100) HDL Cholesterol 73 MG/DL (40-60) H Cholesterol/HDL Ratio 1.9 (3.3-4.4) L Microbiology Date/Time Source Procedure Growth Status 03/04/18 06:00 Wound Gram Stain - Final Resulted 03/04/18 06:00 Wound Culture - Preliminary Strep Species, Beta Hemolytic Gram Negative Alex Resulted Intake and Output 03/04/18 03/05/18 19:00 07:00 Intake Total 570 ml 360 ml Output Total 1001 ml 2700 ml Balance -431 ml -2340 ml Intake Oral 450 ml 360 ml Other 120 ml Output Urine Total 1000 ml 2700 ml Stool Total 1 ml Assessment/Plan Assessment/Plan #elevated troponin- no report of angina #generalized weakness #leg pain #afib #history of PAD #LEON on CKD - serial trop elevated - plan for stress test on tuesday - 2d echo - aspirin 81mg daily - statin - continue with coreg - cardiology consult, appreciate recs - nephrology consult, appreciate recs - lower extremity vascular arterial and venous doppler - pain control - DVT ppx Jarvis Brumfield M.D. March 05, 2018 17:10
[2018-03-05 20:00] VITALS: BP 108/69
[2018-03-05] MEDS: Latanoprost 0.005% Opth 2.5ml Soln BOTH EYES SCH (20:57)
[2018-03-06] VITALS: BP 107/51
[2018-03-06 04:00] VITALS: BP 109/62
[2018-03-06] MEDS: Brimonidine 0.2% Opth Sol BOTH EYES SCH ×3 (05:18→21:26)
[2018-03-06 07:27] LABS: BASOPHILS % (AUTO) 1.2 % (0.0-2.0); EOSINOPHILS % (AUTO) 0.5 % (0.0-3.0); HEMATOCRIT 33.5 % (37.0-47.0); HEMOGLOBIN 10.7 G/DL (12.0-16.0); MEAN CORPUSCULAR VOLUME 77 FL (80-99); MONOCYTES % (AUTO) 6.5 % (1.0-10.0); NEUTROPHILS % (AUTO) 81.7 % (45.0-75.0); PLATELET COUNT 142 K/UL (150-450); RED BLOOD COUNT 4.35 M/UL (4.20-5.40); RED CELL DISTRIBUTION WIDTH 14.7 % (11.6-14.8); WHITE BLOOD COUNT 9.4 K/UL (4.8-10.8)
[2018-03-06 07:57] LABS: ANION GAP 8 mmol/L (5-15); BLOOD UREA NITROGEN 70 mg/dL (7-18); CALCIUM 9.5 MG/DL (8.5-10.1); CARBON DIOXIDE 32 MMOL/L (21-32); CHLORIDE 100 MMOL/L (98-107); CREATININE 2.4 MG/DL (0.55-1.30); POTASSIUM 3.4 MMOL/L (3.5-5.1); SODIUM 140 MMOL/L (136-145)
[2018-03-06 08:00] VITALS: BP 109/76
[2018-03-06] MEDS ORDERED: Lexiscan 0.4mg/5ml syringe IV PRN (09:00)
[2018-03-06] MEDS: Furosemide 80mg tab ORAL SCH ×2 (10:17→20:39)
[2018-03-06] MEDS: Aspirin EC 81mg tab ORAL SCH (10:17)
[2018-03-06] MEDS: Dorzolamide 2% 10ml Btl BOTH EYES SCH ×2 (10:18→18:21)
[2018-03-06 12:00] VITALS: BP 110/62
--- NOTE | 2018-03-06 12:34 | Cardiology Progress Note ---
Assessment/Plan Problem List: (1) CKD (chronic kidney disease) (2) Peripheral vascular disease (3) Atrial fibrillation (4) Elevated troponin (5) Leg ulcer, left Status: stable, unchanged Status Narrative Mrs. Vargas is stable from a cardiac standpoint. ECHO shows no wall motion abnl and preserved LV systolic function. However, there is severe pulm hypertension. She has mild troponin elevation, with continued elevated levels. She has no chest pain or definite ischemic EKG changes ( SR, RBBB and nonspecific T changes ) I suspect AF is permanent. Ventricular rates are controlled She has PVD, w/ nonhealing L LE ulcer. She has CKD, which may be due to to previous uncontrolled hypertension Assessment/Plan stress nuclear study (pharmacologic stress) will be done tomorrow. d/w pt. Continue asa , b anthony, statin continue pradaxa for CVA prevention in AF Evaluation of LE wound and PVD per primary team - ? arterial duplex. Subjective Subjective Cardiology for Dr. Burton Leg pain has improved. No chest pain Objective Last 24 Hour Vital Signs Date Time Temp Pulse Resp B/P (MAP) Pulse Ox O2 Delivery O2 Flow Rate FiO2 03/06/18 08:00 98.4 101 18 109/76 96 Room Air 98.4 03/06/18 08:00 101 03/06/18 04:00 97.5 99 18 109/62 97 Room Air 97.5 03/06/18 03:42 102 03/06/18 00:00 97.9 97 18 107/51 93 Room Air 97.9 03/06/18 00:00 96 03/05/18 21:00 103 117/51 03/05/18 20:00 98.2 104 19 108/69 95 Room Air 98.2 03/05/18 19:52 88 03/05/18 16:00 97.6 92 20 118/71 97 Room Air 97.6 03/05/18 16:00 104 General Appearance: WD/WN, alert EENT: PERRL/EOMI Neck: supple, no JVD Rhythm: Afib Cardiovascular: normal rate, no gallop/murmur, irregularly irregular Respiratory/Chest: lungs clear Abdomen: non tender, soft Extremities: moderate edema - L leg dressing intact Intake and Output 03/05/18 03/06/18 19:00 07:00 Intake Total 620 ml Output Total 950 ml Balance -330 ml Intake Oral 620 ml Output Urine Total 950 ml # Voids 2 1 Laboratory Tests Test 03/06/18 06:35 White Blood Count 9.4 K/UL (4.8-10.8) Red Blood Count 4.35 M/UL (4.20-5.40) Hemoglobin 10.7 G/DL (12.0-16.0) L Hematocrit 33.5 % (37.0-47.0) L Mean Corpuscular Volume 77 FL (80-99) L Mean Corpuscular Hemoglobin 24.5 PG (27.0-31.0) L Mean Corpuscular Hemoglobin Concent 31.8 G/DL (32.0-36.0) L Red Cell Distribution Width 14.7 % (11.6-14.8) Platelet Count 142 K/UL (150-450) L Mean Platelet Volume 7.8 FL (6.5-10.1) Neutrophils (%) (Auto) 81.7 % (45.0-75.0) H Lymphocytes (%) (Auto) 10.0 % (20.0-45.0) L Monocytes (%) (Auto) 6.5 % (1.0-10.0) Eosinophils (%) (Auto) 0.5 % (0.0-3.0) Basophils (%) (Auto) 1.2 % (0.0-2.0) Sodium Level 140 MMOL/L (136-145) Potassium Level 3.4 MMOL/L (3.5-5.1) L Chloride Level 100 MMOL/L (98-107) Carbon Dioxide Level 32 MMOL/L (21-32) Anion Gap 8 mmol/L (5-15) Blood Urea Nitrogen 70 mg/dL (7-18) H Creatinine 2.4 MG/DL (0.55-1.30) H Estimat Glomerular Filtration Rate mL/min (>60) Glucose Level 99 MG/DL (74-106) Calcium Level 9.5 MG/DL (8.5-10.1) Microbiology Date/Time Source Procedure Growth Status 03/04/18 06:00 Wound Gram Stain - Final Resulted 03/04/18 06:00 Wound Culture - Preliminary Strep Agalactiae Group B Providencia Rettgeri Resulted Mayela Cedeno MD March 06, 2018 12:34
--- NOTE | 2018-03-06 13:46 | Nephrology Progress Note ---
Assessment/Plan Problem List: (1) CKD (chronic kidney disease) Assessment: no change/ baseline ? (2) Peripheral vascular disease (3) Leg ulcer, left (4) Atrial fibrillation Plan continue with diuretics replete K follow BMP await PTH await renal US Subjective Subjective feels ok Objective Objective Last 24 Hour Vital Signs Date Time Temp Pulse Resp B/P (MAP) Pulse Ox O2 Delivery O2 Flow Rate FiO2 03/06/18 08:00 98.4 101 18 109/76 96 Room Air 98.4 03/06/18 08:00 101 03/06/18 04:00 97.5 99 18 109/62 97 Room Air 97.5 03/06/18 03:42 102 03/06/18 00:00 97.9 97 18 107/51 93 Room Air 97.9 03/06/18 00:00 96 03/05/18 21:00 103 117/51 03/05/18 20:00 98.2 104 19 108/69 95 Room Air 98.2 03/05/18 19:52 88 03/05/18 16:00 97.6 92 20 118/71 97 Room Air 97.6 03/05/18 16:00 104 Intake and Output 03/05/18 03/06/18 19:00 07:00 Intake Total 620 ml Output Total 950 ml Balance -330 ml Intake Oral 620 ml Output Urine Total 950 ml # Voids 2 1 Laboratory Tests 03/06/18 06:35: White Blood Count 9.4, Red Blood Count 4.35, Hemoglobin 10.7L, Hematocrit 33.5L , Mean Corpuscular Volume 77L, Mean Corpuscular Hemoglobin 24.5L, Mean Corpuscular Hemoglobin Concent 31.8L, Red Cell Distribution Width 14.7, Platelet Count 142L, Mean Platelet Volume 7.8, Neutrophils (%) (Auto) 81.7H, Lymphocytes (%) (Auto) 10.0L, Monocytes (%) (Auto) 6.5, Eosinophils (%) (Auto) 0.5, Basophils (%) (Auto) 1.2, Sodium Level 140, Potassium Level 3.4L, Chloride Level 100, Carbon Dioxide Level 32, Anion Gap 8, Blood Urea Nitrogen 70H, Creatinine 2.4H, Estimat Glomerular Filtration Rate , Glucose Level 99, Calcium Level 9.5 Height (Feet): 5 Height (Inches): 9.00 Weight (Pounds): 250 Cardiovascular: normal rate Respiratory/Chest: lungs clear Extremities: moderate edema Wilian Montesinos MD March 06, 2018 13:46
[2018-03-06 16:00] VITALS: BP 119/55
[2018-03-06] MEDS: Latanoprost 0.005% Opth 2.5ml Soln BOTH EYES SCH (20:34)
[2018-03-06] MEDS: Carvedilol 12.5mg tab ORAL SCH (20:39)
[2018-03-06 21:00] VITALS: BP 105/81
--- NOTE | 2018-03-06 22:32 | General Progress Note ---
Assessment/Plan Problem List: (1) Atrial fibrillation ICD Codes: I48.91 - Unspecified atrial fibrillation SNOMED: 49180977 (2) Generalized weakness ICD Codes: R53.1 - Weakness SNOMED: 05200630 (3) Leg ulcer, left ICD Codes: L97.929 - Non-pressure chronic ulcer of unspecified part of left lower leg with unspecified severity SNOMED: 58099815 (4) Elevated troponin ICD Codes: R74.8 - Abnormal levels of other serum enzymes SNOMED: 244466978, 658202049, 293667071 (5) Peripheral vascular disease ICD Codes: I73.9 - Peripheral vascular disease, unspecified SNOMED: 858452671 (6) CKD (chronic kidney disease) ICD Codes: N18.9 - Chronic kidney disease, unspecified SNOMED: 938539765 Status: stable, progressing Assessment/Plan #elevated troponin- no report of angina #generalized weakness #leg pain #afib #history of PAD #LEON on CKD - serial trop elevated - plan for stress test on tuesday - 2d echo normal EF - aspirin 81mg daily - statin - continue with coreg - cardiology consult, appreciate recs - nephrology consult, appreciate recs - lower extremity venous duplex negative for DVT - continue wound care to LLE for venous ulcer - outpatient f/u with vascular surgeon for angioplasty with stent for PVD - pain control - DVT ppx DVT Prophylaxis: HSQ Code Status: Full Hospital Classification Declaration: Based on this initial evaluation, and depending on the patient's clinical course, I anticipate that this patient will require hospitalization for 2-3 days for elevated troponins and close respiratory/hemodynamic monitoring. Disposition: Once the patient is stable to leave the hospital, I anticipate the patient will likely be discharged to the following environment: home with vs SNF I spent 36 minutes on this patient's case, and 22 minutes were dedicated to counseling and/or care coordination. Discussed with patient/family, nursing staff, SW/CM, cardiology and nephrology regarding clinical status, treatment course, and disposition planning. Time of note may not reflect time of encounter. Subjective Date patient seen: March 06, 2018 Time patient seen: 12:00 Allergies: Coded Allergies: No Known Allergies (Unverified , 03/03/18) Subjective - doing well, no chest pain or SOB. AF, HDS - scheduled for nuclear stress Tuesday Objective Last 24 Hour Vital Signs Date Time Temp Pulse Resp B/P (MAP) Pulse Ox O2 Delivery O2 Flow Rate FiO2 03/06/18 20:39 105 105/69 03/06/18 20:00 93 03/06/18 16:00 93 03/06/18 16:00 98.2 90 18 119/55 98 Room Air 98.2 03/06/18 12:00 98.4 102 18 110/62 93 Room Air 98.4 03/06/18 12:00 110 03/06/18 08:00 98.4 101 18 109/76 96 Room Air 98.4 03/06/18 08:00 101 03/06/18 04:00 97.5 99 18 109/62 97 Room Air 97.5 03/06/18 03:42 102 03/06/18 00:00 97.9 97 18 107/51 93 Room Air 97.9 03/06/18 00:00 96 Intake and Output 03/05/18 03/06/18 19:00 07:00 Intake Total 620 ml Output Total 950 ml Balance -330 ml Intake Oral 620 ml Output Urine Total 950 ml # Voids 2 1 Laboratory Tests 03/06/18 06:35: White Blood Count 9.4, Red Blood Count 4.35, Hemoglobin 10.7L, Hematocrit 33.5L , Mean Corpuscular Volume 77L, Mean Corpuscular Hemoglobin 24.5L, Mean Corpuscular Hemoglobin Concent 31.8L, Red Cell Distribution Width 14.7, Platelet Count 142L, Mean Platelet Volume 7.8, Neutrophils (%) (Auto) 81.7H, Lymphocytes (%) (Auto) 10.0L, Monocytes (%) (Auto) 6.5, Eosinophils (%) (Auto) 0.5, Basophils (%) (Auto) 1.2, Sodium Level 140, Potassium Level 3.4L, Chloride Level 100, Carbon Dioxide Level 32, Anion Gap 8, Blood Urea Nitrogen 70H, Creatinine 2.4H, Estimat Glomerular Filtration Rate , Glucose Level 99, Calcium Level 9.5 Height (Feet): 5 Height (Inches): 9.00 Weight (Pounds): 250 General Appearance: no apparent distress, alert EENT: PERRL/EOMI, normal ENT inspection Neck: non-tender, normal alignment, supple Cardiovascular: normal peripheral pulses, normal rate, regular rhythm Respiratory/Chest: chest wall non-tender, lungs clear, normal breath sounds Abdomen: normal bowel sounds, non tender, soft Edema: moderate edema Neurologic: rn traveling II-XII grossly normal, no motor/sensory deficits, alert, oriented x 3 Skin: other - venous ulcer to left lower extremity Lizett De Leon NP March 06, 2018 22:32
[2018-03-07] VITALS: BP 92/61
[2018-03-07 04:00] VITALS: BP 106/69
[2018-03-07] MEDS: Brimonidine 0.2% Opth Sol BOTH EYES SCH ×3 (05:35→23:12)
[2018-03-07 08:00] VITALS: BP 100/60
[2018-03-07] MEDS: Furosemide 80mg tab ORAL SCH ×2 (08:52→23:11)
[2018-03-07] MEDS: Dorzolamide 2% 10ml Btl BOTH EYES SCH ×2 (08:52→17:55)
[2018-03-07] MEDS: Carvedilol 12.5mg tab ORAL SCH ×2 (08:52→23:11)
[2018-03-07] MEDS: Aspirin EC 81mg tab ORAL SCH (08:52)
[2018-03-07 09:16] LABS: BASOPHILS % (AUTO) 1.3 % (0.0-2.0); EOSINOPHILS % (AUTO) 0.9 % (0.0-3.0); HEMATOCRIT 35.5 % (37.0-47.0); HEMOGLOBIN 11.2 G/DL (12.0-16.0); LYMPHOCYTES % (AUTO) 9.2 % (20.0-45.0); MEAN CORPUSCULAR VOLUME 77 FL (80-99); MONOCYTES % (AUTO) 7.4 % (1.0-10.0); NEUTROPHILS % (AUTO) 81.2 % (45.0-75.0); PLATELET COUNT 166 K/UL (150-450); RED BLOOD COUNT 4.59 M/UL (4.20-5.40); RED CELL DISTRIBUTION WIDTH 14.3 % (11.6-14.8)
[2018-03-07 09:26] LABS: ANION GAP 7 mmol/L (5-15); BLOOD UREA NITROGEN 73 mg/dL (7-18); CALCIUM 9.7 MG/DL (8.5-10.1); CARBON DIOXIDE 34 MMOL/L (21-32); CHLORIDE 98 MMOL/L (98-107); CREATININE 2.5 MG/DL (0.55-1.30); POTASSIUM 3.4 MMOL/L (3.5-5.1); SODIUM 139 MMOL/L (136-145)
--- NOTE | 2018-03-07 10:13 | Cardiology Report ---
APPROVED REPORT EXAM: Two-dimensional and M-mode echocardiogram with Doppler and color Doppler. INDICATION ATRIAL FIBRILLATION M-Mode DIMENSIONS IVSd1.6 (0.7-1.1cm)Left Atrium (MM)4.2 (1.6-4.0cm) LVDd5.2 (3.5-5.6cm)Aortic Root3.4 (2.0-3.7cm) PWd1.5 (0.7-1.1cm)Aortic Cusp Exc.1.9 (1.5-2.0cm) IVSs1.9 cm LVDs3.5 (2.5-4.0cm) PWs1.9 cm Normal left ventricular chamber size, systolic function and wall motion . Left ventricular ejection fraction estimated to be 60%. Mild left ventricular hypertrophy by 2-D. No evidence of pericardial effusion. Mild bi-atrial enlargements . Right ventricular chamber sizes is within normal limits. Mildly Focal aortic valve sclerosis with adequate cusp excursion. Mildly Thickened mitral valve leaflets with normal excursion. Mildldy Mitral annulus and aortic root calcification. Normal pulmonic valve structure. Normal tricuspid valve structure. IVC at normal size with physiologic collapse. A color flow and spectral Doppler study was performed and revealed: No aortic regurgitation. Mild mitral regurgitation. Left ventricular diastolic function can not determined due to atrial fibrillation . Moderate tricuspid regurgitation. Tricuspid systolic velocities suggests peak right ventricular systolic pressure of61,consistent with severe pulmonary hypertension. Mild Pulmonic regurgitation present.
[2018-03-07 12:00] VITALS: BP 106/63
[2018-03-07] MEDS ORDERED: Levofloxacin 500mg tab ORAL SCH (12:00)
--- NOTE | 2018-03-07 14:49 | Nephrology Progress Note ---
Assessment/Plan Problem List: (1) CKD (chronic kidney disease) Assessment: no change/ baseline ? (2) Peripheral vascular disease (3) Leg ulcer, left (4) Atrial fibrillation (5) Hypokalemia Plan continue with diuretics Daily KCL follow BMP await PTH await renal US Subjective Subjective feels ok Objective Objective Last 24 Hour Vital Signs Date Time Temp Pulse Resp B/P (MAP) Pulse Ox O2 Delivery O2 Flow Rate FiO2 03/07/18 12:00 97.9 91 19 106/63 97 97.9 03/07/18 08:52 91 100/60 03/07/18 08:00 103 03/07/18 08:00 97.7 91 20 100/60 99 97.7 03/07/18 08:00 97.7 91 20 100/60 99 Room Air 97.7 03/07/18 04:00 99.5 99 19 106/69 96 Room Air 99.5 03/07/18 04:00 99 03/07/18 00:00 93 03/07/18 00:00 98.5 93 20 92/61 95 Room Air 98.5 03/06/18 21:00 98.2 98 19 105/81 94 Room Air 98.2 03/06/18 20:39 105 105/69 03/06/18 20:00 93 03/06/18 16:00 93 03/06/18 16:00 98.2 90 18 119/55 98 Room Air 98.2 Intake and Output 03/06/18 03/07/18 19:00 07:00 Intake Total 480 ml 240 ml Output Total 900 ml Balance 480 ml -660 ml Intake Oral 480 ml 240 ml Output Urine Total 900 ml # Voids 14 4 # Bowel Movements 1 Laboratory Tests 03/07/18 08:45: White Blood Count 12.0H, Red Blood Count 4.59, Hemoglobin 11.2L, Hematocrit 35.5L, Mean Corpuscular Volume 77L, Mean Corpuscular Hemoglobin 24.5L, Mean Corpuscular Hemoglobin Concent 31.6L, Red Cell Distribution Width 14.3, Platelet Count 166, Mean Platelet Volume 7.6, Neutrophils (%) (Auto) 81.2H, Lymphocytes (%) (Auto) 9.2L, Monocytes (%) (Auto) 7.4, Eosinophils (%) (Auto) 0.9, Basophils (%) (Auto) 1.3, Sodium Level 139, Potassium Level 3.4L, Chloride Level 98, Carbon Dioxide Level 34H, Anion Gap 7, Blood Urea Nitrogen 73H, Creatinine 2.5H, Estimat Glomerular Filtration Rate , Glucose Level 106, Calcium Level 9.7 Height (Feet): 5 Height (Inches): 9.00 Weight (Pounds): 250 Cardiovascular: normal rate Respiratory/Chest: lungs clear Wilian Montesinos MD March 07, 2018 14:49
[2018-03-07 16:00] VITALS: BP 100/56
--- NOTE | 2018-03-07 16:23 | Diagnostic Imaging Report ---
Indication: chest pain. Hypertension Technique: The study was conducted under the supervision of a child development specialist. lexiscan (regadenoson) infusion over 10 seconds followed by intravenous administration of 32.4 mCi of technetium 99m Myoview was performed. Three plane SPECT imaging of the heart was then performed. A resting study was performed as part of the one-day protocol with 10.1 mCi of technetium 99m myoview injected intravenously at that time. Three plane SPECT imaging of the heart was obtained. Comparison: None Clinical data: 1. Clinical response: Non ischemic 2. Electrocardiographic response: Nondiagnostic Findings: The myocardial perfusion scan demonstrates no definite fixed or reversible perfusion defects. Left ventricular ejection fraction estimated at 69%. IMPRESSION: Negative myocardial perfusion scan. LVEF 69%
--- NOTE | 2018-03-07 19:37 | General Progress Note ---
Assessment/Plan Problem List: (1) Atrial fibrillation ICD Codes: I48.91 - Unspecified atrial fibrillation SNOMED: 67148916 (2) Generalized weakness ICD Codes: R53.1 - Weakness SNOMED: 61238598 (3) Leg ulcer, left ICD Codes: L97.929 - Non-pressure chronic ulcer of unspecified part of left lower leg with unspecified severity SNOMED: 66175503 (4) Elevated troponin ICD Codes: R74.8 - Abnormal levels of other serum enzymes SNOMED: 793734290, 679665702, 817811526 (5) Peripheral vascular disease ICD Codes: I73.9 - Peripheral vascular disease, unspecified SNOMED: 871915709 (6) CKD (chronic kidney disease) ICD Codes: N18.9 - Chronic kidney disease, unspecified SNOMED: 896450225 (7) Leg wound, left ICD Codes: S81.802A - Unspecified open wound, left lower leg, initial encounter SNOMED: 373750390, 22069086, 939183391 Status: stable, progressing Assessment/Plan #elevated troponin- no report of angina #generalized weakness #leg pain #afib #history of PAD #LEON on CKD #leg wound - serial trop elevated - plan for stress test today - 2d echo normal EF 60% - f/u renal ultrasound - aspirin 81mg daily - statin - continue with coreg - cardiology consult, appreciate recs - nephrology consult, appreciate recs - lower extremity venous duplex negative for DVT - continue wound care to LLE for venous ulcer. start levaquin for positive wound culture results and leukocytosis - outpatient f/u with vascular surgeon for angioplasty with stent for PVD - pain control - DVT ppx DVT Prophylaxis: HSQ Code Status: Full Hospital Classification Declaration: Based on this initial evaluation, and depending on the patient's clinical course, I anticipate that this patient will require hospitalization for 2-3 days for elevated troponins and close respiratory/hemodynamic monitoring. Disposition: Once the patient is stable to leave the hospital, I anticipate the patient will likely be discharged to the following environment: home with vs SNF I spent 36 minutes on this patient's case, and 22 minutes were dedicated to counseling and/or care coordination. Discussed with patient/family, nursing staff, SW/CM, cardiology and nephrology regarding clinical status, treatment course, and disposition planning. Time of note may not reflect time of encounter. Subjective Date patient seen: March 07, 2018 Time patient seen: 12:00 Allergies: Coded Allergies: No Known Allergies (Unverified , 03/03/18) Subjective - doing well, no chest pain or SOB. AF, HDS - scheduled for nuclear stress today - WBC uptrended to 12 today. no f/c. wound culture noted Objective Last 24 Hour Vital Signs Date Time Temp Pulse Resp B/P (MAP) Pulse Ox O2 Delivery O2 Flow Rate FiO2 03/07/18 16:00 99 03/07/18 16:00 97.7 85 18 100/56 94 97.7 03/07/18 12:00 101 03/07/18 12:00 97.9 91 19 106/63 97 97.9 03/07/18 08:52 91 100/60 03/07/18 08:00 103 03/07/18 08:00 97.7 91 20 100/60 99 97.7 03/07/18 08:00 97.7 91 20 100/60 99 Room Air 97.7 03/07/18 04:00 99.5 99 19 106/69 96 Room Air 99.5 03/07/18 04:00 99 03/07/18 00:00 93 03/07/18 00:00 98.5 93 20 92/61 95 Room Air 98.5 03/06/18 21:00 98.2 98 19 105/81 94 Room Air 98.2 03/06/18 20:39 105 105/69 03/06/18 20:00 93 Intake and Output 03/06/18 03/07/18 19:00 07:00 Intake Total 480 ml 240 ml Output Total 900 ml Balance 480 ml -660 ml Intake Oral 480 ml 240 ml Output Urine Total 900 ml # Voids 14 4 # Bowel Movements 1 Laboratory Tests 03/07/18 08:45: White Blood Count 12.0H, Red Blood Count 4.59, Hemoglobin 11.2L, Hematocrit 35.5L, Mean Corpuscular Volume 77L, Mean Corpuscular Hemoglobin 24.5L, Mean Corpuscular Hemoglobin Concent 31.6L, Red Cell Distribution Width 14.3, Platelet Count 166, Mean Platelet Volume 7.6, Neutrophils (%) (Auto) 81.2H, Lymphocytes (%) (Auto) 9.2L, Monocytes (%) (Auto) 7.4, Eosinophils (%) (Auto) 0.9, Basophils (%) (Auto) 1.3, Sodium Level 139, Potassium Level 3.4L, Chloride Level 98, Carbon Dioxide Level 34H, Anion Gap 7, Blood Urea Nitrogen 73H, Creatinine 2.5H, Estimat Glomerular Filtration Rate , Glucose Level 106, Calcium Level 9.7 Height (Feet): 5 Height (Inches): 9.00 Weight (Pounds): 250 General Appearance: no apparent distress, alert EENT: PERRL/EOMI, normal ENT inspection Neck: non-tender, normal alignment, supple Cardiovascular: normal peripheral pulses, normal rate, regular rhythm Respiratory/Chest: chest wall non-tender, lungs clear, normal breath sounds Abdomen: normal bowel sounds, non tender, soft Extremities: normal range of motion, non-tender, other - venous ulcer to left leg 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
[2018-03-07 20:00] VITALS: BP 103/65
[2018-03-07] MEDS: Latanoprost 0.005% Opth 2.5ml Soln BOTH EYES SCH (23:12)
[2018-03-08] VITALS: BP 108/71
[2018-03-08 04:00] VITALS: BP 103/65
[2018-03-08] MEDS: Brimonidine 0.2% Opth Sol BOTH EYES SCH ×3 (05:49→21:24)
[2018-03-08 08:00] VITALS: BP_SYST 103; BP_SYST 127; BP_DIAS 65; BP_DIAS 75
[2018-03-08 08:29] LABS: ANION GAP 7 mmol/L (5-15); BLOOD UREA NITROGEN 74 mg/dL (7-18); CALCIUM 9.8 MG/DL (8.5-10.1); CARBON DIOXIDE 34 MMOL/L (21-32); CHLORIDE 98 MMOL/L (98-107); CREATININE 2.5 MG/DL (0.55-1.30); POTASSIUM 3.3 MMOL/L (3.5-5.1); SODIUM 139 MMOL/L (136-145)
[2018-03-08] MEDS: Carvedilol 12.5mg tab ORAL SCH ×2 (08:36→21:00)
[2018-03-08] MEDS: Furosemide 80mg tab ORAL SCH ×2 (08:36→20:41)
[2018-03-08] MEDS: Aspirin EC 81mg tab ORAL SCH (08:36)
[2018-03-08] MEDS: Dorzolamide 2% 10ml Btl BOTH EYES SCH ×2 (08:38→18:57)
--- NOTE | 2018-03-08 09:35 | Diagnostic Imaging Report ---
APPROVED REPORT CPT Code: 56044 Present Symptoms Comments: BILATERAL LEGS PAIN AND SWELLING. BILATERAL: Imaging reveals a patent deep venous system bilaterally. There is no evidence of thrombus within the femoral, popliteal or tibial segments. The greater saphenous veins are also within normal limits. Doppler indicates normal spontaneous flow within these segments.
[2018-03-08 12:00] VITALS: BP 105/61
[2018-03-08 13:35] LABS: BASOPHILS % (AUTO) 0.6 % (0.0-2.0); EOSINOPHILS % (AUTO) 1.2 % (0.0-3.0); HEMATOCRIT 37.5 % (37.0-47.0); HEMOGLOBIN 11.8 G/DL (12.0-16.0); LYMPHOCYTES % (AUTO) 9.3 % (20.0-45.0); MEAN CORPUSCULAR VOLUME 78 FL (80-99); MONOCYTES % (AUTO) 8.3 % (1.0-10.0); NEUTROPHILS % (AUTO) 80.5 % (45.0-75.0); PLATELET COUNT 192 K/UL (150-450); RED BLOOD COUNT 4.83 M/UL (4.20-5.40); RED CELL DISTRIBUTION WIDTH 14.6 % (11.6-14.8); WHITE BLOOD COUNT 8.9 K/UL (4.8-10.8)
[2018-03-08 13:58] LABS: ANION GAP 9 mmol/L (5-15); BLOOD UREA NITROGEN 74 mg/dL (7-18); CALCIUM 9.7 MG/DL (8.5-10.1); CARBON DIOXIDE 32 MMOL/L (21-32); CHLORIDE 96 MMOL/L (98-107); CREATININE 2.6 MG/DL (0.55-1.30); POTASSIUM 3.5 MMOL/L (3.5-5.1); SODIUM 137 MMOL/L (136-145)
--- NOTE | 2018-03-08 13:59 | General Progress Note ---
Assessment/Plan Problem List: (1) Atrial fibrillation ICD Codes: I48.91 - Unspecified atrial fibrillation SNOMED: 34841289 (2) Generalized weakness ICD Codes: R53.1 - Weakness SNOMED: 22136261 (3) Leg ulcer, left ICD Codes: L97.929 - Non-pressure chronic ulcer of unspecified part of left lower leg with unspecified severity SNOMED: 94901602 (4) Elevated troponin ICD Codes: R74.8 - Abnormal levels of other serum enzymes SNOMED: 442876262, 657398950, 003113244 (5) Peripheral vascular disease ICD Codes: I73.9 - Peripheral vascular disease, unspecified SNOMED: 284776299 (6) CKD (chronic kidney disease) ICD Codes: N18.9 - Chronic kidney disease, unspecified SNOMED: 663193733 (7) Leg wound, left ICD Codes: S81.802A - Unspecified open wound, left lower leg, initial encounter SNOMED: 634557429, 14644517, 201636805 Status: stable, progressing Assessment/Plan #elevated troponin- no report of angina #generalized weakness #leg pain #afib #history of PAD #LEON on CKD #leg wound - serial trop elevated - stress test negative myocardial perfusion scan. LVEF 69% - 2d echo normal EF 60% - f/u renal ultrasound - aspirin 81mg daily - statin - continue with coreg - cardiology consult, appreciate recs - nephrology consult, appreciate recs - lower extremity venous duplex negative for DVT - continue wound care to LLE for venous ulcer. start levaquin for positive wound culture results and leukocytosis. check UA - outpatient f/u with vascular surgeon for angioplasty with stent for PVD - pain control - DVT ppx Called Anjum Ochoa [phone] to discuss discharge planning. Unable to get a hold of him, left VM. DVT Prophylaxis: HSQ Code Status: Full Hospital Classification Declaration: Based on this initial evaluation, and depending on the patient's clinical course, I anticipate that this patient will require hospitalization for 2-3 days for elevated troponins and close respiratory/hemodynamic monitoring. Disposition: Once the patient is stable to leave the hospital, I anticipate the patient will likely be discharged to the following environment: home with vs SNF I spent 36 minutes on this patient's case, and 22 minutes were dedicated to counseling and/or care coordination. Discussed with patient/family, nursing staff, SW/CM, cardiology and nephrology regarding clinical status, treatment course, and disposition planning. Time of note may not reflect time of encounter. Subjective Date patient seen: March 08, 2018 Time patient seen: 11:00 Allergies: Coded Allergies: No Known Allergies (Unverified , 03/03/18) Subjective - AM labs pending - nuclear stress test negative myocardial perfusion scan. LVEF 69% - denies cp, sob - discussed discharge to SNF and per patient, it will be up to son Objective Last 24 Hour Vital Signs Date Time Temp Pulse Resp B/P (MAP) Pulse Ox O2 Delivery O2 Flow Rate FiO2 03/08/18 08:36 98 127/75 03/08/18 08:00 96.6 98 20 127/75 94 Room Air 96.6 03/08/18 08:00 91 03/08/18 04:00 96.6 97 18 103/65 98 96.6 03/08/18 04:00 95 03/08/18 00:00 96.1 105 19 108/71 98 96.1 03/07/18 23:11 92 103/65 03/07/18 20:00 96.6 97 18 103/65 98 96.6 03/07/18 20:00 92 03/07/18 16:00 99 03/07/18 16:00 97.7 85 18 100/56 94 97.7 Intake and Output 03/07/18 03/08/18 19:00 07:00 Intake Total 900 ml Output Total 4 ml Balance 896 ml Intake Oral 900 ml Output Urine Total 4 ml # Voids 2 # Bowel Movements 1 Laboratory Tests 03/08/18 05:25: Sodium Level 139, Potassium Level 3.3L, Chloride Level 98, Carbon Dioxide Level 34H, Anion Gap 7, Blood Urea Nitrogen 74H, Creatinine 2.5H, Estimat Glomerular Filtration Rate , Glucose Level 103, Calcium Level 9.8, Magnesium Level 2.3 03/08/18 13:00: Sodium Level [Pending], Potassium Level [Pending], Chloride Level [Pending], Carbon Dioxide Level [Pending], Blood Urea Nitrogen [Pending], Creatinine [ Pending], Estimat Glomerular Filtration Rate [Pending], Glucose Level [Pending] , Calcium Level [Pending], White Blood Count 8.9, Red Blood Count 4.83, Hemoglobin 11.8L, Hematocrit 37.5, Mean Corpuscular Volume 78L, Mean Corpuscular Hemoglobin 24.4L, Mean Corpuscular Hemoglobin Concent 31.5L, Red Cell Distribution Width 14.6, Platelet Count 192, Mean Platelet Volume 8.6, Neutrophils (%) (Auto) 80.5H, Lymphocytes (%) (Auto) 9.3L, Monocytes (%) (Auto) 8.3, Eosinophils (%) (Auto) 1.2, Basophils (%) (Auto) 0.6 Height (Feet): 5 Height (Inches): 9.00 Weight (Pounds): 233 General Appearance: no apparent distress, alert EENT: PERRL/EOMI, normal ENT inspection Neck: non-tender, normal alignment, supple Cardiovascular: normal peripheral pulses, normal rate, regular rhythm Respiratory/Chest: chest wall non-tender, lungs clear, normal breath sounds Abdomen: normal bowel sounds, non tender, soft Extremities: normal range of motion, non-tender, other - left venous ulcer 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
[2018-03-08 16:00] VITALS: BP 102/59
[2018-03-08 17:42] LABS: APPEARANCE,URINE CLEAR; BILIRUBIN, URINE NEGATIVE (NEGATIVE); COLOR,URINE YELLOW; GLUCOSE, URINE (UA) NEGATIVE (NEGATIVE); KETONES,URINE NEGATIVE (NEGATIVE); LEUKOCYTE ESTERASE ,URINE 1+ (NEGATIVE); NITRITE,URINE NEGATIVE (NEGATIVE); PH,URINE 7 (4.5-8.0); PROTEIN,URINE NEGATIVE (NEGATIVE); UROBILINOGEN,URINE NORMAL MG/DL (0.0-1.0)
--- NOTE | 2018-03-08 18:06 | Cardiology Progress Note ---
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 Subjective Cardiovascular: Denies: chest pain, lightheadedness Respiratory: Denies: shortness of breath Gastrointestinal/Abdominal: Denies: abdominal pain Genitourinary: Denies: burning Objective Last 24 Hour Vital Signs Date Time Temp Pulse Resp B/P (MAP) Pulse Ox O2 Delivery O2 Flow Rate FiO2 03/08/18 16:00 87 03/08/18 12:00 91 03/08/18 08:36 98 127/75 03/08/18 08:00 96.6 98 20 127/75 94 Room Air 96.6 03/08/18 08:00 91 03/08/18 04:00 96.6 97 18 103/65 98 96.6 03/08/18 04:00 95 03/08/18 00:00 96.1 105 19 108/71 98 96.1 03/07/18 23:11 92 103/65 03/07/18 20:00 96.6 97 18 103/65 98 96.6 03/07/18 20:00 92 General Appearance: mild distress Neck: supple Cardiovascular: normal rate, regular rhythm Respiratory/Chest: lungs clear, normal breath sounds Abdomen: normal bowel sounds, non tender, soft Extremities: moderate edema Intake and Output 03/07/18 03/08/18 19:00 07:00 Intake Total 900 ml Output Total 4 ml Balance 896 ml Intake Oral 900 ml Output Urine Total 4 ml # Voids 2 # Bowel Movements 1 Laboratory Tests Test 03/08/18 05:25 03/08/18 12:00 03/08/18 13:00 Sodium Level 139 MMOL/L (136-145) 137 MMOL/L (136-145) Potassium Level 3.3 MMOL/L (3.5-5.1) L 3.5 MMOL/L (3.5-5.1) Chloride Level 98 MMOL/L (98-107) 96 MMOL/L (98-107) L Carbon Dioxide Level 34 MMOL/L (21-32) H 32 MMOL/L (21-32) Anion Gap 7 mmol/L (5-15) 9 mmol/L (5-15) Blood Urea Nitrogen 74 mg/dL (7-18) H 74 mg/dL (7-18) H Creatinine 2.5 MG/DL (0.55-1.30) H 2.6 MG/DL (0.55-1.30) H Estimat Glomerular Filtration Rate mL/min (>60) mL/min (>60) Glucose Level 103 MG/DL (74-106) 153 MG/DL (74-106) H Calcium Level 9.8 MG/DL (8.5-10.1) 9.7 MG/DL (8.5-10.1) Magnesium Level 2.3 MG/DL (1.8-2.4) Urine Color Yellow Urine Appearance Clear Urine pH 7 (4.5-8.0) Urine Specific [place] 1.005 (1.005-1.035) Urine Protein Negative (NEGATIVE) Urine Glucose (UA) Negative (NEGATIVE) Urine Ketones Negative (NEGATIVE) Urine Occult Blood 1+ (NEGATIVE) H Urine Nitrite Negative (NEGATIVE) Urine Bilirubin Negative (NEGATIVE) Urine Urobilinogen Normal MG/DL (0.0-1.0) Urine Leukocyte Esterase 1+ (NEGATIVE) H Urine RBC 0-2 /HPF (0 - 2) Urine WBC 2-4 /HPF (0 - 2) Urine Squamous Epithelial Cells Few /LPF (NONE/OCC) Urine Amorphous Sediment Few /LPF (NONE) H Urine Bacteria Few /HPF (NONE) White Blood Count 8.9 K/UL (4.8-10.8) Red Blood Count 4.83 M/UL (4.20-5.40) Hemoglobin 11.8 G/DL (12.0-16.0) L Hematocrit 37.5 % (37.0-47.0) Mean Corpuscular Volume 78 FL (80-99) L Mean Corpuscular Hemoglobin 24.4 PG (27.0-31.0) L Mean Corpuscular Hemoglobin Concent 31.5 G/DL (32.0-36.0) L Red Cell Distribution Width 14.6 % (11.6-14.8) Platelet Count 192 K/UL (150-450) Mean Platelet Volume 8.6 FL (6.5-10.1) Neutrophils (%) (Auto) 80.5 % (45.0-75.0) H Lymphocytes (%) (Auto) 9.3 % (20.0-45.0) L Monocytes (%) (Auto) 8.3 % (1.0-10.0) Eosinophils (%) (Auto) 1.2 % (0.0-3.0) Basophils (%) (Auto) 0.6 % (0.0-2.0) Robin Burton MD March 08, 2018 18:06
[2018-03-08 20:30] VITALS: BP 97/60
[2018-03-08] MEDS: Latanoprost 0.005% Opth 2.5ml Soln BOTH EYES SCH (20:41)
[2018-03-08] MEDS ORDERED: Brimonidine 0.2% Opth Sol BOTH EYES SCH (22:00)
--- NOTE | 2018-03-08 23:20 | Consultation ---
History of Present Illness General Date patient seen: March 08, 2018 Chief Complaint: General Complaint Present Illness HPI 77-year-old female patient presents ER brought in by ambulance complaining of right lower extremity pain. the pt was somewhat confused today. she didnt know the date and was irritable the pt stated that she was at the hospital bc of stress test and she passed it therefore she is not crazy. the pt leaves alone and is forgetful Allergies: Coded Allergies: No Known Allergies (Unverified , 03/03/18) Medication History Scheduled Baclofen (Baclofen), 20 MG ORAL THREE TIMES A DAY, (Reported) Brimonidine Tartrate* (Alphagan*), 1 DROP BOTH EYES TID, (Reported) Dorzolamide Hcl* (Trusopt*), 1 DROP BOTH EYES BID, (Reported) Latanoprost* (Xalatan*), 1 DROP BOTH EYES BEDTIME, (Reported) Miscellaneous Medications Unable to Obtain Medications (Unable To Obtain Meds), (Reported) Patient History Limited by: medical condition History Provided By: Patient, Medical Record, PMD Healthcare decision maker Resuscitation status Full Code Advanced Directive on File Past Medical/Surgical History Past Medical/Surgical History: (1) Leg wound, left (2) Atrial fibrillation (3) Elevated troponin (4) Leg ulcer, left (5) Peripheral vascular disease (6) CKD (chronic kidney disease) (7) Generalized weakness (8) Hypokalemia Review of Systems Psychiatric: Reports: prior hx, anxiety, depressed feelings Physical Exam General Appearance: no apparent distress, alert Neurologic: depressed affect Last 24 Hour Vital Signs Date Time Temp Pulse Resp B/P (MAP) Pulse Ox O2 Delivery O2 Flow Rate FiO2 03/08/18 21:00 99 103/65 03/08/18 16:00 87 03/08/18 16:00 97.0 98 19 102/59 98 Room Air 97.0 03/08/18 12:00 91 03/08/18 12:00 97.5 98 19 105/61 95 Room Air 97.5 03/08/18 08:36 98 127/75 03/08/18 08:00 96.6 98 20 127/75 94 Room Air 96.6 03/08/18 08:00 91 03/08/18 04:00 96.6 97 18 103/65 98 96.6 03/08/18 04:00 95 03/08/18 00:00 96.1 105 19 108/71 98 96.1 Intake and Output 03/07/18 03/08/18 19:00 07:00 Intake Total 900 ml Output Total 4 ml Balance 896 ml Intake Oral 900 ml Output Urine Total 4 ml # Voids 2 # Bowel Movements 1 Laboratory Tests Test 03/08/18 05:25 03/08/18 12:00 03/08/18 13:00 Sodium Level 139 MMOL/L (136-145) 137 MMOL/L (136-145) Potassium Level 3.3 MMOL/L (3.5-5.1) L 3.5 MMOL/L (3.5-5.1) Chloride Level 98 MMOL/L (98-107) 96 MMOL/L (98-107) L Carbon Dioxide Level 34 MMOL/L (21-32) H 32 MMOL/L (21-32) Anion Gap 7 mmol/L (5-15) 9 mmol/L (5-15) Blood Urea Nitrogen 74 mg/dL (7-18) H 74 mg/dL (7-18) H Creatinine 2.5 MG/DL (0.55-1.30) H 2.6 MG/DL (0.55-1.30) H Estimat Glomerular Filtration Rate mL/min (>60) mL/min (>60) Glucose Level 103 MG/DL (74-106) 153 MG/DL (74-106) H Calcium Level 9.8 MG/DL (8.5-10.1) 9.7 MG/DL (8.5-10.1) Magnesium Level 2.3 MG/DL (1.8-2.4) Urine Color Yellow Urine Appearance Clear Urine pH 7 (4.5-8.0) Urine Specific [place] 1.005 (1.005-1.035) Urine Protein Negative (NEGATIVE) Urine Glucose (UA) Negative (NEGATIVE) Urine Ketones Negative (NEGATIVE) Urine Occult Blood 1+ (NEGATIVE) H Urine Nitrite Negative (NEGATIVE) Urine Bilirubin Negative (NEGATIVE) Urine Urobilinogen Normal MG/DL (0.0-1.0) Urine Leukocyte Esterase 1+ (NEGATIVE) H Urine RBC 0-2 /HPF (0 - 2) Urine WBC 2-4 /HPF (0 - 2) Urine Squamous Epithelial Cells Few /LPF (NONE/OCC) Urine Amorphous Sediment Few /LPF (NONE) H Urine Bacteria Few /HPF (NONE) White Blood Count 8.9 K/UL (4.8-10.8) Red Blood Count 4.83 M/UL (4.20-5.40) Hemoglobin 11.8 G/DL (12.0-16.0) L Hematocrit 37.5 % (37.0-47.0) Mean Corpuscular Volume 78 FL (80-99) L Mean Corpuscular Hemoglobin 24.4 PG (27.0-31.0) L Mean Corpuscular Hemoglobin Concent 31.5 G/DL (32.0-36.0) L Red Cell Distribution Width 14.6 % (11.6-14.8) Platelet Count 192 K/UL (150-450) Mean Platelet Volume 8.6 FL (6.5-10.1) Neutrophils (%) (Auto) 80.5 % (45.0-75.0) H Lymphocytes (%) (Auto) 9.3 % (20.0-45.0) L Monocytes (%) (Auto) 8.3 % (1.0-10.0) Eosinophils (%) (Auto) 1.2 % (0.0-3.0) Basophils (%) (Auto) 0.6 % (0.0-2.0) Height (Feet): 5 Height (Inches): 9.00 Weight (Pounds): 233 Medications Current Medications Medications (Trade) Dose Ordered Sig/Karoline Route PRN Reason Start Time Stop Time Status Last Admin Dose Admin Acetaminophen (Tylenol) 650 mg Q4H PRN ORAL Mild Pain/Temp > 100.5 03/09/18 00:00 04/03/18 00:00 Aspirin (Ecotrin) 81 mg DAILY ORAL 03/09/18 09:00 04/04/18 08:59 Atorvastatin Calcium (Lipitor) 10 mg BEDTIME ORAL 03/09/18 21:00 04/04/18 20:59 Brimonidine Tartrate (Alphagan) 1 drop Q8HR BOTH EYES 03/08/18 22:00 04/03/18 13:59 Carvedilol (Coreg) 12.5 mg EVERY 12 HOURS ORAL 03/09/18 09:00 04/03/18 08:59 Dabigatran (Pradaxa) 75 mg EVERY 12 HOURS ORAL 03/09/18 09:00 04/04/18 08:59 Dorzolamide HCl (Trusopt) 1 drop TWICE A DAY BOTH EYES 03/09/18 09:00 04/03/18 17:59 Furosemide (Lasix) 80 mg EVERY 12 HOURS ORAL 03/09/18 09:00 04/03/18 08:59 Latanoprost (Xalatan) 1 drop BEDTIME BOTH EYES 03/09/18 21:00 04/03/18 20:59 Levofloxacin (Levaquin) 750 mg Q48H ORAL 03/09/18 12:00 03/14/18 11:59 Metolazone (Zaroxolyn) 5 mg DAILY ORAL 03/09/18 09:00 04/03/18 08:59 Potassium Chloride (K-Dur) 40 meq DAILY ORAL 03/09/18 09:00 04/06/18 14:59 Assessment/Plan Assessment/Plan cognitive impairment depressive d/o rec to involve the family and dc to facility Nohemi Islas M.D. March 08, 2018 23:20
[2018-03-09] VITALS: BP 97/59
[2018-03-09 04:00] VITALS: BP 101/71
[2018-03-09] MEDS: Brimonidine 0.2% Opth Sol BOTH EYES SCH ×2 (05:11→13:15)
[2018-03-09 08:00] VITALS: BP 106/73
[2018-03-09] MEDS: Dorzolamide 2% 10ml Btl BOTH EYES SCH ×2 (08:44→17:04)
[2018-03-09] MEDS ORDERED: Carvedilol 12.5mg tab ORAL SCH (09:00)
[2018-03-09] MEDS ORDERED: Furosemide 80mg tab ORAL SCH (09:00)
[2018-03-09] MEDS ORDERED: Aspirin EC 81mg tab ORAL SCH (09:00)
[2018-03-09 11:50] VITALS: BP 105/61
[2018-03-09 15:51] VITALS: BP 96/64
--- NOTE | 2018-03-09 17:23 | General Progress Note ---
Assessment/Plan Assessment/Plan depressive d/o anxiety -cont current meds -provided ro/st Subjective Date patient seen: March 09, 2018 Neurologic/Psychiatric: Reports: anxiety, depressed Allergies: Coded Allergies: No Known Allergies (Unverified , 03/03/18) Subjective the pt is irritable and does not know the date. the pt is illogical Objective Last 24 Hour Vital Signs Date Time Temp Pulse Resp B/P (MAP) Pulse Ox O2 Delivery O2 Flow Rate FiO2 03/09/18 15:51 98.2 74 18 96/64 98 98.2 03/09/18 11:50 96.8 97 18 105/61 100 96.8 03/09/18 11:29 93 106/73 03/09/18 08:00 96.1 93 18 106/73 98 96.1 03/09/18 04:00 97.9 95 18 101/71 98 97.9 03/09/18 00:00 98.1 99 19 97/59 96 98.1 03/08/18 21:00 99 103/65 03/08/18 20:30 97.7 103 20 97/60 96 97.7 Intake and Output 03/08/18 03/09/18 19:00 07:00 Intake Total 520 ml 220 ml Output Total 1200 ml Balance -680 ml 220 ml Intake Oral 520 ml 220 ml Output Urine Total 1200 ml # Voids 3 # Bowel Movements 1 1 Height (Feet): 5 Height (Inches): 9.00 Weight (Pounds): 233 General Appearance: no apparent distress, alert Neurologic: depressed affect Nohemi Islas M.D. March 09, 2018 17:23
[2018-03-09] MEDS ORDERED: FUROSEMIDE80 MG ORAL (18:41)
[2018-03-09] MEDS ORDERED: COREG12.5 MG ORAL (18:41)
[2018-03-09] MEDS ORDERED: ZAROXOLYN2.5 MG ORAL (18:41)
[2018-03-09] MEDS ORDERED: LIPITOR10 MG ORAL (18:41)
[2018-03-09] MEDS ORDERED: LEVAQUIN250 M1 ORAL (18:41)
[2018-03-09] MEDS ORDERED: ASPIRIN EC81 MG ORAL (18:41)
[2018-03-09] MEDS ORDERED: DABIGATRAN ORAL (18:41)
--- NOTE | 2018-03-09 20:28 | Cardiology Progress Note ---
Assessment/Plan Assessment/Plan (1) CKD (chronic kidney disease) (2) Peripheral vascular disease (3) Atrial fibrillation (4) Elevated troponin (5) Leg ulcer, left echo normal wall motion with phtn perfusion imaging neg for ischemia tele afib presumed permaneent min abn trop likey due to renal insuf no sx to suggest acs nor PE venous duplex neg for dvt hr is controlled pt has own elementary school principal ok to dc from cardiac view point needs bp monitring on dc Subjective Cardiovascular: Denies: chest pain, lightheadedness Respiratory: Denies: shortness of breath Gastrointestinal/Abdominal: Denies: abdominal pain Genitourinary: Denies: burning Objective Last 24 Hour Vital Signs Date Time Temp Pulse Resp B/P (MAP) Pulse Ox O2 Delivery O2 Flow Rate FiO2 03/09/18 15:51 98.2 74 18 96/64 98 98.2 03/09/18 11:50 96.8 97 18 105/61 100 96.8 03/09/18 11:29 93 106/73 03/09/18 08:00 96.1 93 18 106/73 98 96.1 03/09/18 04:00 97.9 95 18 101/71 98 97.9 03/09/18 00:00 98.1 99 19 97/59 96 98.1 03/08/18 21:00 99 103/65 03/08/18 20:30 97.7 103 20 97/60 96 97.7 General Appearance: alert Neck: supple Cardiovascular: irregularly irregular Respiratory/Chest: lungs clear Abdomen: normal bowel sounds, non tender, soft Extremities: trace edema Intake and Output 03/08/18 03/09/18 19:00 07:00 Intake Total 520 ml 220 ml Output Total 1200 ml Balance -680 ml 220 ml Intake Oral 520 ml 220 ml Output Urine Total 1200 ml # Voids 3 # Bowel Movements 1 1 Microbiology Date/Time Source Procedure Growth Status 03/08/18 12:00 Straight Cath Urine Culture - Preliminary Resulted Robin Burton MD March 09, 2018 20:28
[2018-03-09] MEDS ORDERED: Latanoprost 0.005% Opth 2.5ml Soln BOTH EYES SCH (21:00)
== END 2018-03-09 21:30 | DRG 300 ==
LOC: EDBD 17:07 → EMR 17:25 → 2E 18:59 → EDBEDREQ 19:39 → 2E 03-06 11:58 → 4W 03-08 21:05
DX: I73.9 Peripheral vascular disease, unspecified (principal); N17.9 Acute kidney failure, unspecified; L97.929 Non-pressure chronic ulcer of unspecified part of left lower leg with unspecified severity; Z87.891 Personal history of nicotine dependence; I45.10 Unspecified right bundle-branch block; I12.9 Hypertensive chronic kidney disease with stage 1 through stage 4 chronic kidney disease, or unspecified chronic kidney disease; N18.9 Chronic kidney disease, unspecified; I27.20 Pulmonary hypertension, unspecified; I48.2 Chronic atrial fibrillation; F32.9 Major depressive disorder, single episode, unspecified; F41.9 Anxiety disorder, unspecified; Z60.2 Problems related to living alone
CPT/HCPCS: 36415; 71045; 76770; 78452; 80048; 80053; 80061; 81001; 82550; 82553; 83036; 83491; 83735; 83970; 84100; 84300; 84484; 85007; 85025; 85610; 85730; 87070; 87086; 87181; 87205; 89050; 93005; 93017; 93306; 93924; 93970; 99285; J2785; J8499